=== PATIENT | female | born 1995 | race Caucasian/White ===

== ENCOUNTER 2017-07-03 19:41 | Emergency (ER) | payer OTHER, SELFPAY ==
--- NOTE | 2017-07-03 20:11 | XR_ITS ---
XR knee LT 2V HISTORY: Knee pain ITS.REASON: PAIN ORDERING PHYSICIAN: La Watkins PATIENT AGE: 21 years COMPARISON: None FINDINGS: There is a vague rounded lucency within the superior lateral pole of the patella which may be due to dorsal defect. This measures 13 mm. No fracture or dislocation evident. There is a sclerotic lesion involving the proximal metaphyseal region of the tibia centrally and posteriorly and may be due to a bone island. No significant degenerative change. IMPRESSION: 1. Dorsal defect of the patella versus osteochondral defect 2. Sclerotic lesion proximal tibia consistent with bone island. 3. Otherwise negative
[2017-07-03 20:12] VITALS: BP 130/78; PULSE 100; RESP 20; TEMP 36.8; O2SAT 99; BMI 32.0
--- NOTE | 2017-07-03 20:33 | HMH.EDUTC ---
[facility] – [place] Disposition Clinical Impression: Knee pain Qualifiers: Chronicity: chronic Laterality: left Qualified Code(s): M25.562 - Pain in left knee Disposition: Home, Self-Care Condition on Discharge: Good Additional Instructions: *RICE, Rest the extremity, Ice 15-20 minutes 3-4 times daily, Compress- wear the ryan wrap as discussed as much as possible to help reduce swelling and pain, Elevate the extremity when at rest *Ryan wrap is for support and help control swelling, use it except in the shower. Be sure that is not to tight but not to loose either *Elevate when resting *Ibuprofen very 6-8 hours as needed for pain an inflammation. If need something more can take Tylenol in between doses of Ibuprofen to help Immediately follow up for new or worsening of symptoms, or no noticeable improvement over the next 3-5 days Prescriptions: Ibuprofen [Ibuprofen 800mg Tab] 800 mg PO Q6HP PRN #20 tab PRN Reason: Moderate Pain Referrals: Tonio Harris MD [Staff Physician] - Earl Schulz MD [Staff Physician] - Time of Disposition: 21:22 Medical Decision Making - Medical Records Medical records reviewed: Yes: I reviewed the patient's medical records. Vital Signs: 07/03/17 20:12 Temperature 98.2 F Temperature Source Temporal Artery Scan Pulse Rate [Right] 100 H Respiratory Rate 20 Blood Pressure [Right Arm] 130/78 Blood Pressure Mean [Right Arm] 95 Blood Pressure Source [Right Arm] Automatic Cuff Blood Pressure Position [Right Arm] Sitting 02 Sat by Pulse Oximetry 99 Oxygen Delivery Method Room Air - Lab Data Lab Results 07/03/17 20:11: Influenza Type A Ag Negative, Influenza Type B Ag Negative, Strep Scn Rapid Clinic Negative Orders (Tests/Meds): ORDERS Category Date Time Status Knee XR left 2 views [XR knee LT 2V] Stat Exams 07/03/17 20:11 Taken Strep Screen Confirmation Stat Micro 07/03/17 20:11 Received - Radiology Data #1 Image(s): Knee Image Reviewed: Yes I have reviewed radiologist's interpretation Vrad reading- 1 Incidental dorsal defect of the patella versus osteochondral defect. 2. Sclerotic lesion within the proximal tibia consistant with bone - Alex Inquiry Pt receiving controlled substance: No Laex was queried for this patient: No [facility] [place] HPI - General Stated complaint: Left knee Pain Mode of Arrival: Ambulatory Source of Information: Patient Limitations: No Limitations Description of Symptoms (Recalled from Triage Doc. by RN): LEFT KNEE PAIN X1 WK, DENIES INJURY, SORE THROAT TODAY HEENT Symptoms (Recalled from RN notes): No Resp Symptoms (Recalled from RN notes): No Skin Symptoms (Recalled from RN notes): No MS Symptoms (Recalled from RN notes): Yes Functional Status (Recalled from RN notes): N - History of Present Illness Provider Complaint: Patient state that she has been having pain in her left knee area for over a year State that she was doing good with it when about a week ago she began to have pain in the left knee again State that when she tries to stand on her knee or bend it the pain is worse. State that she also wants us to check her for the flu because she has been having sore throat - Related Data Previous Rx's Medication Instructions Recorded Ibuprofen [Ibuprofen 800mg Tab] 800 mg PO Q6HP PRN #20 tab 07/03/17 Allergies Allergy/AdvReac Type Severity Reaction Status Date / Time No Known Allergies Allergy Verified 07/03/17 20:16 - Worker's Comp Is this a Worker's Comp case?: No [facility] History I have reviewed the patient's past medical history: Yes - *Social History Smoking Status: Current every day smoker Tobacco Type: cigarettes Alcohol Intake: never - Psychiatric History Expresses thoughts of harming self/others: None Suicide Plan Description: No Plan ROS Obtained: Yes All systems reviewed & no additional complaints Physical Exam - General General appearance: alert, in no apparent distress - Expanded ENT Exam Comment
[2017-07-03 20:47] LABS: UTC Influenza A Antigen Negative (Negative); UTC Influenza B Antigen Negative (Negative); UTC Strep Screen (Rapid) Negative (Negative)
[2017-07-03 21:20] VITALS: BP 130/78; PULSE 88; RESP 18; TEMP 36.8
== END 2017-07-03 21:28 | disposition home or self-care (01) ==
PROVIDERS: Emergency Provider Nurse Practitioner
DX: M25.562 Pain in left knee (principal)
CPT/HCPCS: 73560; 87804; 87880; 99202

== ENCOUNTER → 2017-07-16 15:16 | Outpatient (CLI) | payer OTHER, SELFPAY ==
--- NOTE | 2017-07-16 15:18 | MR_ITS ---
MR knee LT wo con MRI left knee without contrast Ordering Physician: Tonio Harris MD Patient Age: 21 years: Female HISTORY: Left knee pain on and off for several years. Left knee popping pain medial and lateral. Worse last month. No known injury. TECHNIQUE: Multiplanar multisequence imaging 1.5 the MR. COMPARISON :Plain films left knee 07/03/2017 FINDINGS Suggestion of mild chondral irregularities at lateral facet of patella. Irregularity and variations of chondral signal seen here as noted on sagittal image 16, but best seen on axial image 8, 7 at lateral facet of patella. There is also some concavity at the posterior osseous patella in this region which may reflect osteochondral defect feature. This corresponds with a vague lucency at the superior patella on plain film.. Subtle increased joint fluid which is particularly evident in this region at lateral patellofemoral joint. Just inferior to this area there appears to be some slight increase chondral signal and mild chondral thickening which may reflect some minor chondral edema?. The medial facet patella appears satisfactory. The patella appears normal position on axial images. Borderline patella divine on the sagittal slices The ACL and PCL appear intact. The medial and lateral collateral ligaments are intact The patellar tendon and quadriceps tendon intact. The lateral meniscus and medial meniscus intact. Although note relatively small volume of the body of medial meniscus on coronal images but no definitive tear evident here.. Cartilage at the medial and lateral compartment well-maintained. No osteochondral defects at medial or lateral compartment. . I would note a what would appear to be most likely a sclerotic benign bone island healing ovoid focal low-density focus at the posterior proximal tibia,. This measures up to 10 mm on MR in its its maximum dimension. This matches the sclerotic focus seen on plain film from 07/03/2017. On MR there is some subtle increased bone signal about this area is nonspecific. Unimpressive. Most likely reflect some fatty marrow variation rather than bone edema. No cortical thickening to suggest such things as a osteoid osteoma.. Clinical correlation required . Osseous elements appear overall satisfactory otherwise ===IMPRESSION===== 1. Chondral irregularities at the lateral facet of patella.. In addition to the chondral irregularities here the osseous lateral facet of patella has focal concave posterior contours- question healing prior osteochondral irregularity (, axial image 8),. This correspond with the area of decreased density of superior patella noted on on recent plain film 2. Slight increased joint fluid at lateral patellofemoral joint associated. 3. A 10 mm ovoid sclerotic focus at the posterior tibia, just inferior to the PCL insertion.- Most likely benign sclerotic bone island as was seen on recent plain film as well.
== END ==
PROVIDERS: Family Provider Orthopaedic Surgery; PCP Orthopaedic Surgery; Visit Provider Orthopaedic Surgery
DX: M25.562 Pain in left knee (principal); G89.29 Other chronic pain; M89.9 Disorder of bone, unspecified; M94.9 Disorder of cartilage, unspecified
CPT/HCPCS: 73721

== ENCOUNTER 2017-08-31 14:35 | Emergency (ER) | payer OTHER, SELFPAY ==
[2017-08-31 15:32] VITALS: BP 113/70; PULSE 78; RESP 20; TEMP 36.8; O2SAT 100; BMI 30.1
--- NOTE | 2017-08-31 16:16 | HMH.EDUTC ---
[facility] [place] Clinical Impression: Nausea Disposition: Home, Self-Care Condition on Discharge: Good Instructions: DI for Nausea -- Adult Additional Instructions: Take medication as prescribed Follow up with family doctor Return if needed Over the counter Motrin or Tylenol as needed for fever or pain Prescriptions: Ondansetron [Zofran 4mg ODT] 4 mg PO Q8H #20 tab.rapdis Referrals: Tonio Harris MD [Primary Care Provider] - Forms: Work/School Release Time of Disposition: 16:18 Medical Decision Making - Medical Records Medical records reviewed: Yes: I reviewed the patient's medical records. - Alex Inquiry Pt receiving controlled substance: No Alex was queried for this patient: No Vital Signs: 08/31/17 15:32 Temperature 98.2 F Temperature Source Oral Pulse Rate [Right Brachial] 78 Respiratory Rate 20 Blood Pressure [Right Arm] 113/70 Blood Pressure Mean [Right Arm] 84 Blood Pressure Source [Right Arm] Automatic Cuff Blood Pressure Position [Right Arm] Sitting 02 Sat by Pulse Oximetry 100 Oxygen Delivery Method Room Air - Lab Data Lab results reviewed: Yes: I reviewed the patient's lab results. Orders (Tests/Meds): ED MEDICATIONS Generic Name Dose Route Start Last Admin Trade Name Freq PRN Reason Stop Dose Admin Ondansetron HCl 4 mg 08/31/17 16:18 Zofran 4mg Odt SL 08/31/17 16:19 ONCE ONE [facility] [place] HPI - General Stated complaint: poss allergic reaction to cortisone shot Time Seen by Provider: 08/31/17 15:50 Mode of Arrival: Family Vehicle Source of Information: Patient Limitations: No Limitations Description of Symptoms (Recalled from Triage Doc. by RN): c/o feeling sick and tired since receiving cortisone shot from in [place] on sunday HEENT Symptoms (Recalled from RN notes): No Resp Symptoms (Recalled from RN notes): No Skin Symptoms (Recalled from RN notes): No MS Symptoms (Recalled from RN notes): No Functional Status (Recalled from RN notes): n/a - History of Present Illness Provider Complaint: Patient presents with nausea and upset stomach State that she was worried that she may be having an allergic reaction to the cortisone shot she got in [place] at her doctor on Sunday State that ever since the shot she has had upset stomach Denies rash, denies swelling state that at times she has nausea that comes and goes - Related Data Previous Rx's Medication Instructions Recorded Ondansetron [Zofran 4mg ODT] 4 mg PO Q8H #20 tab.albertadis 08/31/17 Allergies Allergy/AdvReac Type Severity Reaction Status Date / Time No Known Allergies Allergy Verified 08/02/17 14:07 - Worker's Comp Is this a Worker's Comp case?: No [facility] History I have reviewed the patient's past medical history: Yes Other Surgeries: Yes: No Previous Surgery - Social History Smoking Status: Current every day smoker Tobacco Type: cigarettes Alcohol Intake: never Alcohol Intake Frequency:: other Substance Use Type: denies use - Psychiatric History Expresses thoughts of harming self/others: None Suicide Plan Description: No Plan Family Hx:: Diabetes ROS Obtained: Yes All systems reviewed & no additional complaints - Constitutional Constitutional: Denies chills, Denies fever(s) - Gastrointestinal Gastrointestingal: Reports: nausea - Allergic/Immunologic Allergic/Immunologic: Denies hives Physical Exam - General General appearance: alert, in no apparent distress - ENT ENT exam: Present: normal exam, normal oropharynx, mucous membranes moist, TM's normal bilaterally, normal external ear exam - Respiratory Respiratory exam: Present: normal lung sounds bilaterally. Absent: respiratory distress - Cardiovascular Cardiovascular exam: Present: regular rate, normal rhythm. Absent: JVD - Abdominal Exam Abdominal exam: Present: soft, normal bowel sounds. Absent: distention, tenderness, guarding - Extremities Exam Extremities exam: Present:
[2017-08-31 16:28] VITALS: BP 113/70; PULSE 78; RESP 20; TEMP 36.8; O2SAT 100
== END 2017-08-31 16:29 | disposition home or self-care (01) ==
PROVIDERS: Emergency Provider Nurse Practitioner; Family Provider Orthopaedic Surgery; PCP Orthopaedic Surgery
DX: R11.0 Nausea (principal); F17.210 Nicotine dependence, cigarettes, uncomplicated
CPT/HCPCS: 99201

== ENCOUNTER 2019-10-13 20:32 | Emergency (ER) | payer SELFPAY ==
[2019-10-13 20:34] VITALS: BP 108/84; PULSE 81; RESP 15; TEMP 36.8; O2SAT 100
[2019-10-13 20:49] VITALS: BMI 32.9
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
[2019-10-13 21:19] LABS: Chloride 105 mmol/L (98-107); Sodium 137 mmol/L (136-145)
[2019-10-13 21:20] LABS: Potassium 4.4 mmoL/L (3.5-5.1)
[2019-10-13 21:21] LABS: Basophils # 0.1 K/mm3 (0-0.2); Basophils % 0.7 % (0.1-2.0); Eosinophils # 0.1 K/mm3 (0.0-0.4); Eosinophils % 1.2 % (0.1-12.0); Hematocrit 40.2 % (37.0-47.0); Hemoglobin 12.7 g/dL (12.2-16.2); Lymphocytes # 1.8 K/mm3 (0.7-4.5); Lymphocytes % 17.2 % (10-50); Mean Corpuscular HGB Conc 31.5 g/dL (31.8-35.4); Mean Corpuscular Hemoglobin 27.6 pg (27.0-31.2); Mean Corpuscular Volume 87.5 fl (81-99); Mean Platelet Volume 9.1 fl (7.4-10.4); Monocytes # 0.5 K/mm3 (0.1-1.0); Monocytes % 5.2 % (1.7-9.3); Neutrophils # 7.9 K/mm3 (1.8-7.8); Neutrophils % 75.8 % (37.0-80.0); Platelet Count 325 K/mm3 (142-424); Red Blood Count 4.59 M/mm3 (4.20-5.40); Red Cell Distribution Width 12.7 % (11.5-17.5); White Blood Count 10.4 K/mm3 (4.8-10.8)
[2019-10-13 21:22] LABS: Alanine Aminotransferase 12 U/L (12-78); Alkaline Phosphatase 85 U/L (38-126); Anion Gap 11.4 mEq/L (5-15); Aspartate Amino Transferase 30 U/L (14-36); Blood Urea Nitrogen 11 mg/dl (7-17); Carbon Dioxide 25 mmol/L (22.0-30.0); Creatinine Clearance Estimated 125 mL/min (50-200); Estimated Glomerular Filt Rate 78 ml/min (>60); GFR (African American) 94 ML/MIN (>60); Glucose 87 mg/dl (74-100); HCG Qualitative, Serum Negative (Negative)
[2019-10-13 21:23] LABS: Albumin Level 4.4 g/dl (3.5-5.0); Albumin/Globulin Ratio 1.3 (1.1-1.8); Globulin 3.3 g/dL (1.3-3.2); Total Protein,Serum 7.7 g/dl (6.3-8.2)
[2019-10-13 21:29] LABS: Bilirubin,Total < 0.1 mg/dl (0.2-1.3)
[2019-10-13 21:42] VITALS: BP 119/68; PULSE 78; TEMP 37.2; O2SAT 100
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
[2019-10-14 00:21] VITALS: BP 112/62; PULSE 76; RESP 16; TEMP 37.2; O2SAT 100
== END 2019-10-14 00:28 | disposition home or self-care (01) ==
PROVIDERS: Emergency Provider Emergency Medicine
DX: S39.91XA Unspecified injury of abdomen, initial encounter (principal); S00.03XA Contusion of scalp, initial encounter; S16.1XXA Strain of muscle, fascia and tendon at neck level, initial encounter; V89.2XXA Person injured in unspecified motor-vehicle accident, traffic, initial encounter; F33.1 Major depressive disorder, recurrent, moderate; F17.210 Nicotine dependence, cigarettes, uncomplicated
CPT/HCPCS: 70450; 71045; 72125; 72170; 73564; 74177; 80053; 84703; 85025; 96365; 99282; Q9967

== ENCOUNTER 2020-01-13 14:36 | Emergency (ER) | payer MEDICAID, SELFPAY ==
[2020-01-13 15:14] VITALS: BP 102/64; PULSE 69; RESP 14; TEMP 36.8; O2SAT 100; BMI 31.1
--- NOTE | 2020-01-13 15:21 | HMH.EDUTC ---
[facility] [place] Disposition Clinical Impression: Migraine Qualifiers: Migraine type: unspecified Status migrainosus presence: without status migrainosus Intractability: not intractable Qualified Code(s): G43.909 - Migraine, unspecified, not intractable, without status migrainosus Disposition: Home, Self-Care Condition on Discharge: Good Instructions: Migraine -- Adult, DI for Migraine Additional Instructions: Go home lay down and sleep off remainder of migraine headache Follow up with Family doctor for further treatment and evaluation Return if needed Straight to ER if any life threatening symptoms Referrals: PCP,No [Primary Care Provider] - As needed Forms: Work/School Release Time of Disposition: 16:03 Medical Decision Making - Alex Inquiry Pt receiving controlled substance: No Alex was queried for this patient: No Vital Signs: 01/13/20 15:14 Temperature 98.2 F Temperature Source Oral Pulse Rate [Right Brachial] 69 Respiratory Rate 14 Blood Pressure [Right Arm] 102/64 L Blood Pressure Mean [Right Arm] 76 Blood Pressure Source [Right Arm] Automatic Cuff Blood Pressure Position [Right Arm] Sitting 02 Sat by Pulse Oximetry 100 Oxygen Delivery Method Room Air - Lab Data Lab results reviewed: Yes: I reviewed the patient's lab results. Orders (Tests/Meds): ED MEDICATIONS Discontinued Medications Generic Name Dose Route Start Last Admin Trade Name Wanq PRN Reason Stop Dose Admin Diphenhydramine HCl 25 mg 01/13/20 15:29 01/13/20 15:51 Benadryl 50mg/1ml Vial IM 01/13/20 15:30 25 mg ONCE ONE Administration Ketorolac Tromethamine 60 mg 01/13/20 15:29 01/13/20 15:52 Toradol 60mg/2ml Vial IM 01/13/20 15:30 60 mg ONCE ONE Administration Metoclopramide HCl 10 mg 01/13/20 15:29 01/13/20 15:51 Metoclopramide 10mg Tablet PO 01/13/20 15:30 10 mg ONCE ONE Administration - Reevaluation(s) Time: 16:02 Reevaluation #1: Patient states that headache is starting to ease off and she is feeling better [facility] [place] HPI - General Stated complaint: migraine for 3 days Time Seen by Provider: 01/13/20 15:21 Mode of Arrival: Ambulatory Source of Information: Patient Limitations: No Limitations Description of Symptoms (Recalled from Triage Doc. by RN): PATIENT C/O MIGRAINE X 3 DAYS HEENT Symptoms (Recalled from RN notes): Yes Resp Symptoms (Recalled from RN notes): No Skin Symptoms (Recalled from RN notes): No MS Symptoms (Recalled from RN notes): No Functional Status (Recalled from RN notes): WNL - History of Present Illness Provider Complaint: Patient states that she has had a migraine headache for about 3 days States that she was seen at [facility] about 2 days ago and was given injection of steriods and benadryl States that it helped for a little bit but then it came back States that today she is still having a headache so she came in to see if she could get something to help with the headache - Related Data Previous Rx's Medication Instructions Recorded Amoxicillin/Potassium Clav 1 tab PO Q12H 10 Days #20 tab 04/15/19 [Augmentin 875-125 Tablet] Ondansetron [Zofran 4mg ODT] 4 mg PO Q8HP PRN #20 tab.rapdis 04/15/19 predniSONE [Prednisone 20mg 20 mg PO BID 4 Days #8 tab 04/15/19 Tab] Allergies Allergy/AdvReac Type Severity Reaction Status Date / Time No Known Allergies Allergy Verified 10/13/19 22:42 - Worker's Comp Is this a Worker's Comp case?: No [facility] History - Hepatitis A Screen Drug use history?: No High risk sexual behaviors?: No History of sexually transmitted infection?: No Currently employed?: No Childcare worker?: No Do you have indoor plumbing?: Yes Do you have electricity?: Yes Attestation statement:: This patient has been screened for Hepatitis A risk factors. I have reviewed the patient's past medical history: Yes Medical History: Reports:: Depression Denies:: Diabetes Mellitus Type 1, Diabetes Mellitus Type 2, MR
[2020-01-13 16:06] VITALS: BP 102/64; PULSE 69; RESP 14; TEMP 36.8; O2SAT 100
== END 2020-01-13 16:10 | disposition home or self-care (01) ==
PROVIDERS: Emergency Provider Nurse Practitioner
DX: G43.909 Migraine, unspecified, not intractable, without status migrainosus (principal); F17.210 Nicotine dependence, cigarettes, uncomplicated
CPT/HCPCS: 96372; 99201

== ENCOUNTER 2020-03-26 19:00 | Emergency (ER) | payer MEDICAID, SELFPAY ==
[2020-03-26 19:15] VITALS: BP 117/74; PULSE 82; RESP 18; TEMP 36.6; O2SAT 100; BMI 31.8
--- NOTE | 2020-03-26 19:38 | HMH.EDUTC ---
[facility] [place] Clinical Impression: Left knee pain Qualifiers: Chronicity: chronic Qualified Code(s): M25.562 - Pain in left knee Disposition: Home, Self-Care Condition on Discharge: Good Additional Instructions: Rest the extremity,Wear the shruthi wrap for compression, Elevate the extremity as tolerated while you are resting. Take ibuprofen for pain. I sent in a prescription to your pharmacy. Follow up with Dr. Hraris. I put in a referral but you need to call his office and schedule an appointment. Follow up with your regular doctor. GO TO THE ER FOR ANY WORSENING SYMPTOMS Prescriptions: Ibuprofen [Ibuprofen 600mg Tablet] 600 mg PO Q6HP PRN #30 tab PRN Reason: Mild Pain Transmission Status: Received by [id number] Referrals: PCP,No [Primary Care Provider] - Forms: Work/School Release Time of Disposition: 19:49 Medical Decision Making - Medical Records Medical records reviewed: No: I reviewed the patient's medical records. - Alex Inquiry Pt receiving controlled substance: No Vital Signs: 03/26/20 19:15 03/26/20 20:00 Temperature 97.8 F 97.8 F Temperature Source Oral Oral Pulse Rate 82 Pulse Rate [Radial] 82 Respiratory Rate 18 18 Blood Pressure 117/74 Blood Pressure [Right Arm] 117/74 Blood Pressure Mean [Right Arm] 88 Blood Pressure Source Automatic Cuff Blood Pressure Source [Right Arm] Automatic Cuff Blood Pressure Position Sitting Blood Pressure Position [Right Arm] Sitting 02 Sat by Pulse Oximetry 100 Oxygen Delivery Method Room Air Room Air [facility] [place]PI - General Stated complaint: L leg pain Time Seen by Provider: 03/26/20 19:38 Mode of Arrival: Ambulatory Source of Information: Patient Limitations: No Limitations Description of Symptoms (Recalled from Triage Doc. by RN): left knee pain x 1 month HEENT Symptoms (Recalled from RN notes): No Resp Symptoms (Recalled from RN notes): No Skin Symptoms (Recalled from RN notes): No MS Symptoms (Recalled from RN notes): Yes Functional Status (Recalled from RN notes): wnl - History of Present Illness Provider Complaint: She c/o left knee pain on and off for the past 1 month. She states that she hurt her knee when she was playing high school basketball. She denies any recent injury or falls. - Related Data Previous Rx's Medication Instructions Recorded Amoxicillin/Potassium Clav 1 tab PO Q12H 10 Days #20 tab 04/15/19 [Augmentin 875-125 Tablet] Ondansetron [Zofran 4mg ODT] 4 mg PO Q8HP PRN #20 tab.rapdis 04/15/19 predniSONE [Prednisone 20mg 20 mg PO BID 4 Days #8 tab 04/15/19 Tab] Ibuprofen [Ibuprofen 600mg 600 mg PO Q6HP PRN #30 tab 03/26/20 Tablet] Allergies Allergy/AdvReac Type Severity Reaction Status Date / Time No Known Allergies Allergy Verified 10/13/19 22:42 - Worker's Comp Is this a Worker's Comp case?: No [facility] History - Hepatitis A Screen Drug use history?: No High risk sexual behaviors?: No History of sexually transmitted infection?: No Currently employed?: No Childcare worker?: No Do you have indoor plumbing?: Yes Do you have electricity?: Yes Attestation statement:: This patient has been screened for Hepatitis A risk factors. I have reviewed the patient's past medical history: Yes Medical History: Reports:: Depression Denies:: Diabetes Mellitus Type 1, Diabetes Mellitus Type 2, MRSA Other Surgeries: Yes: No Previous Surgery Amputation: No Fractures: No - Social History Smoking Status: Current every day smoker Tobacco Type: cigarettes # Packs/Day (cigarettes): 1 Alcohol Intake: never Alcohol Intake Frequency:: holidays/special occasions only Substance Use Type: denies use Occupational Status: other Housing: house Household Members: family - Psychiatric History Pschychiatric History:: Reports:: Depression Family Hx:: Diabetes ROS Obtained: Yes All systems reviewed & no additional complaints - Constitutional Constitutional: Reports sy
[2020-03-26 20:00] VITALS: BP 117/74; PULSE 82; RESP 18; TEMP 36.6; O2SAT 100
== END 2020-03-26 20:01 | disposition home or self-care (01) ==
PROVIDERS: Emergency Provider Nurse Practitioner Family
DX: M25.562 Pain in left knee (principal); F17.210 Nicotine dependence, cigarettes, uncomplicated
CPT/HCPCS: 99201

== ENCOUNTER 2020-10-01 09:24 | Emergency (ER) | payer MEDICAID, SELFPAY ==
[2020-10-01 10:00] VITALS: BP 128/74; PULSE 87; RESP 17; TEMP 37; O2SAT 99; BMI 34.7
--- NOTE | 2020-10-01 10:11 | HMH.EDUTC ---
[facility] [place] Clinical Impression: Gastroenteritis Disposition: Home, Self-Care Condition on Discharge: Good Instructions: DI for Viral Gastroenteritis -- Adult Additional Instructions: Clear liquids, bland diet. Return to work Sunday. Referrals: Provider,Referral, [Primary Care Provider] - Forms: Work/School Release Time of Disposition: 10:15 Medical Decision Making - Alex Inquiry Pt receiving controlled substance: No Vital Signs: 10/01/20 10:00 Temperature 98.6 F Temperature Source Oral Pulse Rate [Right Brachial] 87 Respiratory Rate 17 Blood Pressure [Right Arm] 128/74 Blood Pressure Mean [Right Arm] 92 Blood Pressure Source [Right Arm] Automatic Cuff Blood Pressure Position [Right Arm] Sitting 02 Sat by Pulse Oximetry 99 Oxygen Delivery Method Room Air [facility] [place]PI - General Stated complaint: vomiting,headache Time Seen by Provider: 10/01/20 10:11 Mode of Arrival: Ambulatory Source of Information: Patient Limitations: No Limitations Description of Symptoms (Recalled from Triage Doc. by RN): PATIENT C/O VOMITING, HEADACHE, DIARRHEA, AND STOMACH ACHES X 2 DAYS. STATES SHE FEELS BETTER TODAY, NEEDS A NOTE FOR WORK HEENT Symptoms (Recalled from RN notes): No Resp Symptoms (Recalled from RN notes): No Skin Symptoms (Recalled from RN notes): No MS Symptoms (Recalled from RN notes): No Functional Status (Recalled from RN notes): WNL - History of Present Illness Provider Complaint: Vomiting, diarrhea and headache X 2 days. No fever. Feeling better today but just woke up and hasn't eaten or drank anything yet. Very fatigued. Onset (ago): day(s) (2) Location: abdomen Relieving factors: none Exacerbating factors: none Associated symptoms: denies other symptoms Treatments prior to arrival: none - Related Data Home Medications Medication Instructions Recorded Confirmed testosterone cypionate 200 mg/mL 200 mg IM WEEKLY ml 07/16/20 10/01/20 intramuscular oil Allergies Allergy/AdvReac Type Severity Reaction Status Date / Time No Known Allergies Allergy Verified 07/16/20 13:32 - Worker's Comp Is this a Worker's Comp case?: No [facility] History - Hepatitis A Screen Drug use history?: No High risk sexual behaviors?: No History of sexually transmitted infection?: No Currently employed?: No Childcare worker?: No Do you have indoor plumbing?: Yes Do you have electricity?: Yes Attestation statement:: This patient has been screened for Hepatitis A risk factors. I have reviewed the patient's past medical history: Yes Medical History: Reports:: Depression Denies:: Diabetes Mellitus Type 1, Diabetes Mellitus Type 2, MRSA Other Surgeries: Yes: No Previous Surgery Amputation: No Fractures: No - Social History Smoking Status: Current every day smoker Tobacco Type: cigarettes # Packs/Day (cigarettes): 1 Alcohol Intake: never Alcohol Intake Frequency:: holidays/special occasions only Substance Use Type: denies use Occupational Status: other Housing: house Household Members: family - Psychiatric History Pschychiatric History:: Reports:: Depression Family Hx:: Diabetes ROS Obtained: Yes All systems reviewed & no additional complaints - Constitutional Constitutional: Reports headache(s) - Gastrointestinal Gastrointestingal: Reports: loose stools, vomiting Physical Exam - General General appearance: alert, in no apparent distress - Head Head exam: normocephalic - Eye Eye exam: Present: PERRL - ENT ENT exam: Present: normal oropharynx - Chest Chest inspection: Present: symmetric chest wall rise - Respiratory Respiratory exam: Present: normal lung sounds bilaterally - Cardiovascular Cardiovascular exam: Present: regular rate, normal rhythm - Abdominal Exam Abdominal exam: Present: soft. Absent: tenderness - Neurological Exam Neurological exam: Present: alert, oriented X3 - Psychiatric Psychiatric exam: Present: normal affect, normal mood
[2020-10-01 10:16] VITALS: BP 128/74; PULSE 87; RESP 17; TEMP 37; O2SAT 99
== END 2020-10-01 10:21 | disposition home or self-care (01) ==
PROVIDERS: Emergency Provider Physician Assistant
DX: K52.9 Noninfective gastroenteritis and colitis, unspecified (principal)
CPT/HCPCS: 99202; G0463

== ENCOUNTER 2020-10-15 14:40 | Emergency (ER) | payer MEDICAID, SELFPAY ==
[2020-10-15 14:45] VITALS: BP 111/69; PULSE 78; RESP 20; TEMP 36.6; O2SAT 98; BMI 34.7
--- NOTE | 2020-10-15 15:03 | HMH.EDUTC ---
[facility] [place]ression: Bilateral otitis media Qualifiers: Otitis media type: suppurative Chronicity: acute Recurrence: non-recurrent Spontaneous tympanic membrane rupture: without spontaneous rupture Qualified Code(s): H66.003 - Acute suppurative otitis media without spontaneous rupture of ear drum, bilateral Sinusitis Qualifiers: Sinusitis location: maxillary Chronicity: acute Recurrence: non-recurrent Qualified Code(s): J01.00 - Acute maxillary sinusitis, unspecified Disposition: Home, Self-Care Condition on Discharge: Good Instructions: DI for Sinusitis Prescriptions: Amoxicillin [Amoxicillin 875MG Tab] 875 mg PO Q12H #20 tab [id number] predniSONE [Prednisone 20mg Tab] 20 mg PO BID 5 Days #10 tab Transmission Status: Pending to [facility] Pseudoephedrine HCl [Sudafed 12 Hour 120mg Tab] 1 tab PO BID 10 Days #20 tab [facility]: [facility] Referrals: Provider,Referral, [Primary Care Provider] - Forms: Work/School Release Time of Disposition: 15:07 Medical Decision Making - Alex Inquiry Pt receiving controlled substance: No Vital Signs: 10/15/20 14:45 Temperature 97.8 F Temperature Source Oral Pulse Rate [Left Brachial] 78 Respiratory Rate 20 Blood Pressure [Left Arm] 111/69 Blood Pressure Mean [Left Arm] 83 Blood Pressure Source [Left Arm] Automatic Cuff Blood Pressure Position [Left Arm] Sitting 02 Sat by Pulse Oximetry 98 Oxygen Delivery Method Room Air - Lab Data Lab results reviewed: Yes: I reviewed the patient's lab results. Orders (Tests/Meds): ORDERS Category Date Time Status Covid-19 Nasal PCR ([facility]) Routine Lab 10/15/20 14:42 [place]dered [facility] [place] - General Stated complaint: loss taste/smell Time Seen by Provider: 10/15/20 15:03 Mode of Arrival: Ambulatory Source of Information: Patient Limitations: No Limitations Description of Symptoms (Recalled from Triage Doc. by RN): PATIENT C/O LOSS OF TASTE/SMELL, COUGH, SCRATCHY THROAT, RUNNY NOSE, MIGRAINES, AND STOMACH ACHE X 2 DAYS HEENT Symptoms (Recalled from RN notes): Yes Resp Symptoms (Recalled from RN notes): Yes Skin Symptoms (Recalled from RN notes): No MS Symptoms (Recalled from RN notes): No Functional Status (Recalled from RN notes): WNL - History of Present Illness Provider Complaint: Bilateral ear pain, congestion, sore throat, cough X 3-4 days. Not sure about fever. Has had body aches and chills. Has had abdominal pain and diarrhea, no vomiting. No rash. No known exposure to COVID19. Can't smell or taste. Had rapid COVID19 test done yesterday - it was negative. Onset (ago): day(s) (4) Location: head Relieving factors: none Exacerbating factors: none Associated symptoms: denies other symptoms Treatments prior to arrival: none - Related Data Home Medications Medication Instructions Recorded Confirmed testosterone cypionate 200 mg/mL 200 mg IM WEEKLY ml 07/16/20 10/01/20 intramuscular oil Previous Rx's Medication Instructions Recorded Amoxicillin [Amoxicillin 875MG 875 mg PO Q12H #20 tab 10/15/20 Tab] Pseudoephedrine HCl [Sudafed 12 1 tab PO BID 10 Days #20 tab 10/15/20 Hour 120mg Tab] predniSONE [Prednisone 20mg 20 mg PO BID 5 Days #10 tab 10/15/20 Tab] Allergies Allergy/AdvReac Type Severity Reaction Status Date / Time No Known Allergies Allergy Verified 07/16/20 13:32 - Worker's Comp Is this a Worker's Comp case?: No [facility] History - Hepatitis A Screen Drug use history?: No High risk sexual behaviors?: No History of sexually transmitted infection?: No Currently employed?: No Childcare worker?: No Do you have indoor plumbing?: Yes Do you have electricity?: Yes Attestation statement:: This patient has been screened for Hepatitis A risk factors. I have reviewed the patient's past medical history: Yes Medical History: Reports:: Depression De
[2020-10-15 15:12] VITALS: BP 111/69; PULSE 78; RESP 20; TEMP 36.6; O2SAT 98
[2020-10-15 19:12] LABS: UTC Influenza A Antigen Negative (Negative); UTC Strep Screen (Rapid) Negative (Negative)
[2020-10-15 19:13] LABS: UTC Influenza B Antigen Negative (Negative)
== END 2020-10-15 15:16 | disposition home or self-care (01) ==
PROVIDERS: Emergency Provider Physician Assistant
DX: Z20.822 Contact with and (suspected) exposure to COVID-19 (principal); H66.003 Acute suppurative otitis media without spontaneous rupture of ear drum, bilateral; J01.00 Acute maxillary sinusitis, unspecified; F17.210 Nicotine dependence, cigarettes, uncomplicated
CPT/HCPCS: 87804; 87880; 99202; G0463; U0003

== ENCOUNTER → 2021-01-27 09:07 | Outpatient (CLI) | payer MEDICAID, SELFPAY ==
[2021-01-27 09:52] LABS: Basophils # 0.1 K/mm3 (0-0.2); Basophils % 0.9 % (0.1-2.0); Eosinophils # 0.1 K/mm3 (0.0-0.4); Eosinophils % 1.4 % (0.1-12.0); Hematocrit 48.2 % (37.0-47.0); Hemoglobin 15.4 g/dL (12.2-16.2); Lymphocytes # 1.9 K/mm3 (0.7-4.5); Lymphocytes % 28.4 % (10-50); Mean Corpuscular HGB Conc 31.9 g/dL (31.8-35.4); Mean Corpuscular Volume 90.8 fl (81-99); Mean Platelet Volume 9.3 fl (7.4-10.4); Monocytes # 0.4 K/mm3 (0.1-1.0); Monocytes % 6.6 % (1.7-9.3); Neutrophils # 4.1 K/mm3 (1.8-7.8); Neutrophils % 62.7 % (37.0-80.0); Platelet Count 276 K/mm3 (142-424); Red Blood Count 5.31 M/mm3 (4.20-5.40); Red Cell Distribution Width 12.9 % (11.5-17.5); White Blood Count 6.6 K/mm3 (4.8-10.8)
[2021-01-27 10:46] LABS: Alanine Aminotransferase 11 U/L (12-78); Albumin/Globulin Ratio 1.3 (1.1-1.8); Alkaline Phosphatase 76 U/L (38-126); Anion Gap 13.4 mEq/L (5-15); Aspartate Amino Transferase 19 U/L (14-36); Bilirubin,Total 0.6 mg/dl (0.2-1.3); Blood Urea Nitrogen 12 mg/dl (7-17); Calcium 9.3 mg/dl (8.4-10.2); Carbon Dioxide 25 mmol/L (22.0-30.0); Chloride 106 mmol/L (98-107); Chol/HDL Ratio 3.5 (1-3.5); Cholesterol 173 mg/dl (140-200); Estimated Glomerular Filt Rate 77 ml/min (>60); GFR (African American) 93 ML/MIN (>60); Glucose 89 mg/dl (74-100); HDL Cholesterol 50 mg/dl (40-60); Potassium 4.4 mmoL/L (3.5-5.1); Sodium 140 mmol/L (136-145); Triglycerides 83 mg/dl (30-150); VLDL Cholesterol 17 mg/dL (0-40)
[2021-01-27 10:56] LABS: Direct LDL Cholesterol 103.86 mg/dL (100-129)
[2021-01-27 10:58] LABS: Hemoglobin A1C 5.3 % (4.0-6.0)
[2021-01-27 11:19] LABS: Prostate Specific Ag Screen < 0.1 ng/ml (0.0-0.0)
== END ==
PROVIDERS: Nurse Practitioner Family; Visit Provider Emergency Medicine
DX: G43.909 Migraine, unspecified, not intractable, without status migrainosus (principal)
CPT/HCPCS: 36415; 80053; 80061; 83036; 85025; G0103

== ENCOUNTER 2021-02-02 09:15 | Emergency (ER) | payer MEDICAID, SELFPAY ==
--- NOTE | 2021-02-02 10:10 | XR_ITS ---
PROCEDURE: XR SHOULDER RT MIN 2V CLINICAL INDICATION: PAIN COMPARISON: No exams were available for comparison FINDINGS: No fracture or dislocation. No lytic or blastic change. There is normal mineralization. The joint spaces are well-preserved. No significant degenerative/arthritic changes. No erosive changes evident. Other findings:None. IMPRESSION: Negative right shoulder. Dictated by: Jarad Posada MD 02/02/2021 11:05 Jarad Posada MD in [place] 02/02/2021 11:05
[2021-02-02 10:13] VITALS: BP 121/81; PULSE 79; RESP 18; TEMP 36.8; O2SAT 100; BMI 35.4
--- NOTE | 2021-02-02 10:20 | HMH.EDUTC ---
[facility] [place] Clinical Impression: Shoulder pain Qualifiers: Chronicity: unspecified Laterality: right Qualified Code(s): M25.511 - Pain in right shoulder Disposition: Home, Self-Care Condition on Discharge: Good Instructions: How To Perform RICE (Rest, Ice, Compress, Elevate), DI for Shoulder Pain, DI for Muscle Spasm Additional Instructions: *Etodolac francisco 8 hours with meal as needed for pain/inflammation *Not additional anti-inflammatory like Ibuprofen motrin, aleve, advil with the above amount of Etodolac. You can still take Tylenol every 4 hours as needed if you need something else for pain *Ice 20 minutes every 2 hours for the first 48 hours after the initial injury followed by moist heat every 20 minutes 3-4 times a day to affected area *Muscle relaxer every 8 hours as needed for muscle spasms but remember, it WILL cause drowsiness You cannot take it and drive, operate machinery or care for small children. *Keep this area active, no movement leads to more stiffness, However take it easy and avoid heavy lifting pushing or pulling *Follow up with you family doctor if no improvement for further treatment Return if needed Follow up with Orthopedics as scheduled Straight to ER if any life threatening symptoms Prescriptions: Etodolac 200 mg PO Q8HP PRN #20 cap PRN Reason: Moderate Pain Transmission Status: Pending to [facility] Cyclobenzaprine HCl [Flexeril 10mg tablet] 10 mg PO Q8HP PRN #15 tab PRN Reason: Muscle Spasm Transmission Status: P[facility] to [facility] Referrals: Shilo King APRN [Primary Care Provider] - As needed Forms: Work/School Release Medical Decision Making - Alex Inquiry Pt receiving controlled substance: No Alex was queried for this patient: No Vital Signs: 02/02/21 10:13 Temperature 98.3 F Temperature Source Oral Pulse Rate [Right] 79 Respiratory Rate 18 Blood Pressure [Right Arm] 121/81 Blood Pressure Mean [Right Arm] 94 02 Sat by Pulse Oximetry 100 - Radiology Data #1 Image(s): Shoulder Image Reviewed: Yes I reviewed the patient's radiology image Preliminary Findings: No Fracture Seen [facility] [place]PI - General Stated complaint: rt arm/hand numbness, swelling Time Seen by Provider: 02/02/21 10:21 Mode of Arrival: Ambulatory Description of Symptoms (Recalled from Triage Doc. by RN): RIGHT HAND SWOLLEN, RIGHT SHOULDER KEEP GOING NUMB x3DAYS HEENT Symptoms (Recalled from RN notes): No Resp Symptoms (Recalled from RN notes): No Skin Symptoms (Recalled from RN notes): No MS Symptoms (Recalled from RN notes): Yes Functional Status (Recalled from RN notes): WNL - History of Present Illness Provider Complaint: Patient states that she has been having pain in her right hand for months and she has an appointment with Dr Harris next month for it States that for the last few days she has been having spasm like pain in her right shoulder area and it shoots into shoulder and upper arm and at times feels like electricity like feeling in her upper arm State that pain is worse with movement and she cannot lay on this arm due to causing pain States that she does alot of pulling and tugging at work and not sure if she may have hurt it somehow - Related Data Home Medications Medication Instructions Recorded Confirmed testosterone cypionate 200 mg/mL 200 mg IM WEEKLY ml 07/16/20 12/15/20 intramuscular oil Previous Rx's Medication Instructions Recorded Cyclobenzaprine HCl [Flexeril 10mg 10 mg PO Q8HP PRN #15 tab 02/02/21 tablet] Etodolac 200 mg PO Q8HP PRN #20 cap 02/02/21 Allergies Allergy/AdvReac Type Severity Reaction Status Date / Time No Known Allergies Allergy Verified 02/02/21 10:16 - Worker's Comp Is this a Worker's Comp case?: No [facility] History - Hepatitis A Screen Drug use history?: No High risk sexual behaviors?: No History of sexually transmitted infection?: No Currently employed?: No Childcare worker?: No Do you
--- NOTE | 2021-02-02 10:30 | PC.NURSE ---
PT TO XRAY AT THIS TIME.
[2021-02-02 11:28] LABS: UTC Pregnancy Test, Urine Negative (Negative)
[2021-02-02 12:01] VITALS: BP 121/81; PULSE 79; RESP 18; TEMP 36.8; O2SAT 100
== END 2021-02-02 12:04 | disposition home or self-care (01) ==
PROVIDERS: Emergency Provider Nurse Practitioner; PCP Nurse Practitioner Family
DX: M25.511 Pain in right shoulder (principal); R20.2 Paresthesia of skin; Z87.891 Personal history of nicotine dependence
CPT/HCPCS: 73030; 81025; 99202; G0463

== ENCOUNTER → 2021-03-01 08:39 | Outpatient (CLI) | payer MEDICAID, SELFPAY ==
--- NOTE | 2021-03-01 08:44 | XR_ITS ---
PROCEDURE: XR HAND RT MIN 3V CLINICAL INDICATION: right hand pain COMPARISON: No exams were available for comparison FINDINGS: No fracture or dislocation. No lytic or blastic change. There is normal mineralization. The joint spaces are well-preserved. No significant degenerative/arthritic changes. No erosive changes evident. Other findings:None. IMPRESSION: No acute findings. Dictated by: Jarad Posada MD 03/01/2021 17:56 Jarad Posada MD in [place] 03/01/2021 17:56
== END ==
PROVIDERS: Visit Provider Orthopaedic Surgery
DX: M79.641 Pain in right hand (principal)
CPT/HCPCS: 73130

== ENCOUNTER 2021-03-01 09:50 | Outpatient (RCR) | payer MEDICAID, SELFPAY | END 2021-03-01 10:54 | disposition home or self-care (01) | LOC: OT 09:50 | PROVIDERS: Visit Provider Orthopaedic Surgery | DX: G56.01 Carpal tunnel syndrome, right upper limb (principal) | CPT/HCPCS: 97763 ==

== ENCOUNTER → 2021-03-28 07:06 | Outpatient (CLI) | payer MEDICAID, SELFPAY ==
--- NOTE | 2021-03-28 07:06 | CT_ITS ---
PROCEDURE: CT HEAD/BRAIN WO CON CLINICAL INDICATION: headches COMPARISON: CT CT HEAD/BRAIN WO CON from 10/13/2019 TECHNIQUE: Axial images obtained. All CT scans at the facility use one or more dose reduction, viz: automated exposure control, ma/kV adjustment per patient size (including targeted exams where dose is matched to indication, i.e. head), or iterative reconstruction technique. FINDINGS: No midline shift, mass effect, intracranial hemorrhage, hydrocephalus, or extra-axial fluid collection is evident. The calvarium has an unremarkable appearance. No mastoid effusion. Mild to moderate mucosal thickening is present within the sphenoid sinus. Mild mucosal thickening maxillary sinuses. IMPRESSION: No acute intracranial findings. Paranasal sinus disease Dictated by: Jarad Posada MD 03/28/2021 07:49 Jarad Posada MD in [place] 03/28/2021 07:49
== END ==
PROVIDERS: PCP Nurse Practitioner Family; Visit Provider Nurse Practitioner Family
DX: G43.909 Migraine, unspecified, not intractable, without status migrainosus (principal); R55 Syncope and collapse
CPT/HCPCS: 70450

== ENCOUNTER → 2021-06-01 21:08 | Outpatient (CLI) | payer MEDICAID, SELFPAY | PROVIDERS: Visit Provider Nurse Practitioner Family | DX: Z20.822 Contact with and (suspected) exposure to COVID-19 (principal); J02.9 Acute pharyngitis, unspecified | CPT/HCPCS: C9803; U0003; U0005 ==

== ENCOUNTER 2021-06-26 17:43 | Emergency (ER) | payer MEDICAID, SELFPAY ==
[2021-06-26 18:43] VITALS: BP 137/77; PULSE 74; RESP 20; TEMP 36.7; O2SAT 99; BMI 34.7
--- NOTE | 2021-06-26 19:21 | HMH.EDUTC ---
[facility] [place] Clinical Impression: Viral syndrome Disposition: Home, Self-Care Condition on Discharge: Good Instructions: Preventing the Spread of Coronavirus Discharge Instructions, DI for COVID-19 (Suspected or Confirmed ), DI for Viral Syndrome Additional Instructions: Drink plenty of fluids. Take tylenol or ibuprofen for pain or fever. Take the medications as directed. Follow up with your regular doctor. GO TO THE ER FOR ANY WORSENING SYMPTOMS Quarantine until you know the results of your covid-19 test. Notify your school or workplace of your results and follow their instructions regarding return to work/school. Prescriptions: Brompheniramine/Pseudoephed/Dm [Bromfed Dm Cough Syrup] 5 ml PO Q6HP PRN #240 ml PRN Reason: Cough Transmission Status: Pending to [facility] Ondansetron [Zofran 4mg ODT] 4 mg PO Q8HP PRN #20 tab PRN Reason: Nausea Transmission Status: Pending to [facility] Referrals: Shilo King APRN [Primary Care Provider] - Forms: Work/School Release Time of Disposition: 19:47 Medical Decision Making - Medical Records Medical records reviewed: No: I reviewed the patient's medical records. - Alex Inquiry Pt receiving controlled substance: No Vital Signs: 06/26/21 18:43 06/26/21 19:30 Temperature 98.1 F 98.1 F Temperature Source Oral Pulse Rate 74 Pulse Rate [Left] 74 Respiratory Rate 20 20 Blood Pressure 137/77 Blood Pressure [Right Arm] 137/77 Blood Pressure Mean [Right Arm] 97 02 Sat by Pulse Oximetry 99 Orders (Tests/Meds): ORDERS Category Date Time Status Covid-19 Nasal PCR ([place]) Routine Lab 06/26/21 18:38 Received [facility] [place] - General Stated complaint: covid test/treated for symptoms Time Seen by Provider: 06/26/21 19:21 Mode of Arrival: Ambulatory Source of Information: Patient Limitations: No Limitations Description of Symptoms (Recalled from Triage Doc. by RN): pt c/o body aches, nasal drainage, cough and epistaxis (not at this time) HEENT Symptoms (Recalled from RN notes): Yes (nasal drainage) Resp Symptoms (Recalled from RN notes): Yes (cough) Skin Symptoms (Recalled from RN notes): No MS Symptoms (Recalled from RN notes): No Functional Status (Recalled from RN notes): wnl - History of Present Illness Provider Complaint: She states that for the past 2 days, she has had body aches, chills, diarrhea, n/v, scratchy sore throat and she has felt bad. She works in a day care. She may have been exposed to covid-19 by a family member also. - Related Data Home Medications Medication Instructions Recorded Confirmed testosterone cypionate 200 mg/mL 200 mg IM WEEKLY ml 07/16/20 06/01/21 intramuscular oil Previous Rx's Medication Instructions Recorded triamcinolone acetonide 0.5 % 1 applic TOPICAL TID #15 g 03/05/21 topical cream amoxicillin 500 mg capsule 500 mg PO Q12H 10 Days #20 cap 06/01/21 ondansetron 4 mg disintegrating 4 mg PO Q6H PRN 3 Days #12 tab 06/01/21 tablet Brompheniramine/Pseudoephed/Dm 5 ml PO Q6HP PRN #240 ml 06/26/21 [Bromfed Dm Cough Syrup] Ondansetron [Zofran 4mg ODT] 4 mg PO Q8HP PRN #20 tab 06/26/21 Allergies Allergy/AdvReac Type Severity Reaction Status Date / Time No Known Allergies Allergy Verified 06/01/21 12:11 - Worker's Comp Is this a Worker's Comp case?: No [place] History - Hepatitis A Screen Drug use history?: No High risk sexual behaviors?: No History of sexually transmitted infection?: No Currently employed?: No Childcare worker?: No Do you have indoor plumbing?: Yes Do you have electricity?: Yes Attestation statement:: This patient has been screened for Hepatitis A risk factors. I have reviewed the patient's past medical history: Yes Medical History: Reports:: Depression Denies:: Diabetes Mellitus Type 1, Diabetes Mellitus Type 2, MRSA Other Surgeries: Yes: No Previous Surgery Amputation: No Fractures: No - Socia
[2021-06-26 19:30] VITALS: BP 137/77; PULSE 74; RESP 20; TEMP 36.7
== END 2021-06-26 19:52 | disposition home or self-care (01) ==
PROVIDERS: Emergency Provider Nurse Practitioner Family; PCP Nurse Practitioner Family
DX: B34.9 Viral infection, unspecified (principal); Z20.822 Contact with and (suspected) exposure to COVID-19; Z87.891 Personal history of nicotine dependence
CPT/HCPCS: 99202; C9803; G0463; U0003; U0005

== ENCOUNTER → 2021-06-29 10:43 | Outpatient (CLI) | payer MEDICAID, SELFPAY ==
[2021-06-30 09:30] LABS: Covid-19 Nasal PCR Sendout Lex NOT DETECTED
== END ==
PROVIDERS: Visit Provider Nurse Practitioner
DX: Z20.822 Contact with and (suspected) exposure to COVID-19 (principal)
CPT/HCPCS: C9803; U0004; U0005

== ENCOUNTER 2021-08-06 07:57 | Emergency (ER) | payer MEDICAID, SELFPAY ==
[2021-08-06 07:58] VITALS: BP 135/78; PULSE 66; RESP 16; TEMP 36.6; O2SAT 98; BMI 38.2
[2021-08-06 08:05] VITALS: BMI 38.2
--- NOTE | 2021-08-06 08:06 | XR_ITS ---
PROCEDURE INFORMATION: Exam: XR Right Wrist Exam date and time: 08/06/2021 8:06 AM Age: 25 years old Clinical indication: Pain; Wrist; Right; Additional info: Pain/ no injury TECHNIQUE: Imaging protocol: XR Right wrist. Views: 1 or 2 views. COMPARISON: CR XR HAND RT MIN 3V 03/01/2021 8:45 AM FINDINGS: Bones/joints: There is no evidence of acute fracture.There is no evidence of malalignment or dislocation. Soft tissues: Normal. IMPRESSION: There is no evidence of acute fracture.There is no evidence of malalignment or dislocation.
--- NOTE | 2021-08-06 08:08 | HMH.EDGENADL ---
ED Disposition Clinical Impression: De Quervain's tenosynovitis, right Disposition: Home, Self-Care Condition on Discharge: Good Instructions: De Quervain Tenosynovitis, DI for Tendinitis Additional Instructions: Wear wrist brace. Ice 20 minutes 4 times a day. Ibuprofen 800 mg 2 times a day. Follow-up with Dr. Harris in his office, call for appointment. Prescriptions: Ibuprofen [Ibuprofen 800mg Tablet] 800 mg PO Q8HP PRN #21 tab PRN Reason: Moderate Pain Transmission Status: Received by [facility] Referrals: Shilo King APRN [Primary Care Provider] - Tonio Harris MD [Staff Physician] - - Critical Care Critical Care Time: No Attestation: On 08/06/21, the high probability of a clinically significant, sudden or life threatening deterioration of the following system(s) required my full and direct attention, intervention and personal management. The time I documented below is in addition to time spent performing reported procedures but includes the following listed in this critical care notation. Medical Decision Making - Medical Records Medical records reviewed: Yes: I reviewed the patient's medical records. MR Comment: Seen by Dr. Harris Feb 2021 for right hand pain, paresthesias. X-ray neg. EMG/NCV mild CTS. Patient says these symptoms are different. - Alex Inquiry Pt receiving controlled substance: No Vital Signs: 08/06/21 07:58 Temperature 97.8 F Temperature Source Oral Pulse Rate [Radial] 66 Respiratory Rate 16 Blood Pressure [Right Arm] 135/78 Blood Pressure Mean [Right Arm] 97 Blood Pressure Position [Right Arm] Sitting 02 Sat by Pulse Oximetry 98 Oxygen Delivery Method Room Air Orders (Tests/Meds): ED MEDICATIONS Discontinued Medications Generic Name Dose Route Start Last Admin Trade Name Freq PRN Reason Stop Dose Admin Ibuprofen 600 mg 08/06/21 08:07 08/06/21 08:10 Ibuprofen 600 Mg Tablet PO 08/06/21 08:08 600 mg ONCE ONE Administration - Radiology Data #1 Image(s): Wrist Image Reviewed: Yes I reviewed the patient's radiology image, Yes I have reviewed radiologist's interpretation Preliminary Findings: Normal/NAD PROCEDURE INFORMATION: Exam: XR Right Wrist Exam date and time: 08/06/2021 8:06 AM Age: 25 years old Clinical indication: Pain; Wrist; Right; Additional info: Pain/ no injury TECHNIQUE: Imaging protocol: XR Right wrist. Views: 1 or 2 views. COMPARISON: CR XR HAND RT MIN 3V 03/01/2021 8:45 AM FINDINGS: Bones/joints: There is no evidence of acute fracture.There is no evidence of malalignment or dislocation. Soft tissues: Normal. IMPRESSION: There is no evidence of acute fracture.There is no evidence of malalignment or dislocation. General Adult HPI - General Stated complaint: right wrist pain, no accident Time Seen by Provider: 08/06/21 08:03 - History of Present Illness HPI narrative: 1 week history of right wrist pain and numbness of her right hand. No injury. However, states that her wrist hurts whenever she bumps it on anything. Her pain is in the radial aspect of the wrist and increases with movement of her wrist and thumb. States that she wakes up at night sometimes with her entire hand numb, all fingers. She has been using Tylenol without relief. - Related Data Home Medications Medication Instructions Recorded Confirmed testosterone cypionate 200 mg/mL 200 mg IM WEEKLY ml 07/16/20 06/01/21 intramuscular oil Previous Rx's Medication Instructions Recorded triamcinolone acetonide 0.5 % 1 applic TOPICAL TID #15 g 03/05/21 topical cream amoxicillin 500 mg capsule 500 mg PO Q12H 10 Days #20 cap 06/01/21 ondansetron 4 mg disintegrating 4 mg PO Q6H PRN 3 Days #12 tab 06/01/21 tablet Brompheniramine/Pseudoephed/Dm 5 ml PO Q6HP PRN #240 ml 06/26/21 [Bromfed Dm Cough Syrup] Ondansetron [
--- NOTE | 2021-08-06 08:14 | PC.NURSE ---
Notified Rad of wrist xray
--- NOTE | 2021-08-06 08:21 | PC.NURSE ---
Pt returned from Rad
--- NOTE | 2021-08-06 08:54 | PC.NURSE ---
thumb spica applied to rt wrist. instructions on cast care given
[2021-08-06 08:55] VITALS: BP 128/65; PULSE 65; RESP 16; TEMP 36.6; O2SAT 97
== END 2021-08-06 08:56 | disposition home or self-care (01) ==
PROVIDERS: Emergency Provider Emergency Medicine; PCP Nurse Practitioner Family
DX: M65.4 Radial styloid tenosynovitis [de Quervain] (principal); F32.A Depression, unspecified; Z79.1 Long term (current) use of non-steroidal anti-inflammatories (NSAID); Z79.899 Other long term (current) drug therapy; Z87.891 Personal history of nicotine dependence
CPT/HCPCS: 73100; 99283

== ENCOUNTER 2021-10-12 16:23 | Outpatient (RCR) | payer MEDICAID, SELFPAY | END 2021-10-12 17:25 | disposition home or self-care (01) | LOC: OT 16:23 | PROVIDERS: Visit Provider Orthopaedic Surgery | DX: G56.01 Carpal tunnel syndrome, right upper limb (principal); M65.4 Radial styloid tenosynovitis [de Quervain] | CPT/HCPCS: 97763 ==

== ENCOUNTER 2021-12-22 16:38 | Emergency (ER) | payer MEDICAID, SELFPAY ==
[2021-12-22 17:26] VITALS: BP 147/79; PULSE 78; RESP 18; TEMP 37.1; O2SAT 100; BMI 34.9
--- NOTE | 2021-12-22 17:44 | HMH.EDUTC ---
[facility] [place] Disposition Clinical Impression: Sinusitis Qualifiers: Sinusitis location: unspecified location Chronicity: unspecified Qualified Code(s): J32.9 - Chronic sinusitis, unspecified Disposition: Home, Self-Care Condition on Discharge: Good Instructions: Sinusitis, Sinus Headache, DI for Sinusitis Additional Instructions: *Monitor Temp, Over the counter Motrin or Tylenol as directed/as needed Tylenol every 4 hours and Motrin every 6 hours (as long as your family doctor has told you that you can take it) for fever or pain. and straight to ER if unable to lower temp less than 101.0 after medication given *Warm salt water gargles may help to soothe the throat *Throat Lozenges *Warm fluids like tea with honey may help to soothe the throat *Sleep elevated *Humidifier/Vaporizer Follow up IMMEDIATELY for new or worsening symptoms or no Noticeable improvement over the next 48-72 hours. 911 for difficulty breathing or swallowing You were tested for today for COVID19 your test result should be back in the next 24-48 hours, you may check your results on the [facility] [employer] [facility] portal Make sure to take your Vitamins Vit. C Vit D and Zinc if you can take them Prescriptions: predniSONE [Prednisone 20mg Tab] 20 mg PO BID 5 Days #10 tab [facility]: [facility] Azithromycin [Z-Arun 250mg Tab] 250 mg PO DIRECTED #6 tab Transmission Status: Pending to [facility] Referrals: Shilo King APRN [Primary Care Provider] - As needed Forms: Work/School Release Time of Disposition: 17:54 Medical Decision Making - Alex Inquiry Pt receiving controlled substance: No Alex was queried for this patient: No Vital Signs: 12/22/21 17:26 Temperature 98.8 F Temperature Source Oral Pulse Rate [Radial] 78 Respiratory Rate 18 Blood Pressure [Right Arm] 147/79 H Blood Pressure Mean [Right Arm] 101 Blood Pressure Source [Right Arm] Automatic Cuff Blood Pressure Position [Right Arm] Sitting 02 Sat by Pulse Oximetry 100 Oxygen Delivery Method Room Air Orders (Tests/Meds): ORDERS Category Date Time Status Covid-19 Nasal PCR ([facility]) Routine Lab 12/22/21 17:20 Received Medical Decision Narrative: Patient state that she is on testosterone but she has taken prednisone in the past without complications or reactions [facility] [place] HPI - General Stated complaint: Ear acheand covid test Time Seen by Provider: 12/22/21 17:44 Mode of Arrival: Ambulatory Source of Information: Patient Limitations: No Limitations Description of Symptoms (Recalled from Triage Doc. by RN): EARACHE, CONGESTION, MIGRAINE HEENT Symptoms (Recalled from RN notes): Yes Resp Symptoms (Recalled from RN notes): Yes Skin Symptoms (Recalled from RN notes): No MS Symptoms (Recalled from RN notes): No Functional Status (Recalled from RN notes): NA/ - History of Present Illness Provider Complaint: Patient state that she has been having sinus pain and pressure for over a week but pain and pressure in her ears for last couple of days States that her boss tested positive for COVID but she hasnt really been around her thinks it is just a sinus infection but wants to get tested to be safe - Related Data Home Medications Medication Instructions Recorded Confirmed testosterone cypionate 200 mg/mL 200 mg IM WEEKLY ml 07/16/20 11/23/21 intramuscular oil Previous Rx's Medication Instructions Recorded triamcinolone acetonide 0.5 % 1 applic TOPICAL TID #15 g 03/05/21 topical cream Ibuprofen [Ibuprofen 800mg 800 mg PO Q8HP PRN #21 tab 08/06/21 Tablet] Azithromycin [Z-Arun 250mg Tab] 250 mg PO DIRECTED #6 tab 12/22/21 predniSONE [Prednisone 20mg 20 mg PO BID 5 Days #10 tab 12/22/21 Tab] Allergies Allergy/AdvReac Type Severity Reaction Status Date / Time No Known Allergies Allergy Verified 11/23/21 13:13 - Worker's Comp Is this a Worker's Comp case?: No [facility] History - Hepatitis A Sc
[2021-12-22 18:03] VITALS: BP 147/79; PULSE 78; RESP 18; TEMP 37.1; O2SAT 100
== END 2021-12-22 18:06 | disposition home or self-care (01) ==
PROVIDERS: Emergency Provider Nurse Practitioner; PCP Nurse Practitioner Family
DX: J32.9 Chronic sinusitis, unspecified (principal); Z20.822 Contact with and (suspected) exposure to COVID-19
CPT/HCPCS: 99212; C9803; G0463; U0003; U0005

== ENCOUNTER 2022-01-02 11:18 | Emergency (ER) | payer MEDICAID, SELFPAY ==
--- NOTE | 2022-01-02 11:26 | HMH.EDUTC ---
[facility] [place] Disposition Clinical Impression: Pharyngitis Qualifiers: Pharyngitis/tonsillitis etiology: unspecified etiology Qualified Code(s): J02.9 - Acute pharyngitis, unspecified Disposition: Home, Self-Care Condition on Discharge: Good Instructions: DI for Pharyngitis/Tonsillopharyngitis -- Adult, DI for COVID-19 (Suspected or Confirmed ), Preventing the Spread of Coronavirus Discharge Instructions Additional Instructions: Drink plenty of fluids. Take tylenol or ibuprofen for pain or fever. Take the medications as directed. Follow up with your regular doctor. GO TO THE ER FOR ANY WORSENING SYMPTOMS Quarantine until you know the results of your covid-19 test. Notify your school or workplace of your results and follow their instructions regarding return to work/school. Prescriptions: Brompheniramine/Pseudoephed/Dm [Bromfed Dm Cough Syrup] 5 ml PO Q6HP PRN #240 ml PRN Reason: Cough Transmission Status: Received by [facility] predniSONE [Deltasone 10mg tablet] 10 mg PO BID 3 Days #6 tab Transmission Status: Received by [facility] Azithromycin [Z-Arun 250mg Tab*] 250 mg PO UD DOSE PK #6 tab Transmission Status: Received by [facility] Referrals: Shilo King APRN [Primary Care Provider] - Forms: Work/School Release Time of Disposition: 12:10 Medical Decision Making - Medical Records Medical records reviewed: No: I reviewed the patient's medical records. - Alex Inquiry Pt receiving controlled substance: No Vital Signs: 01/02/22 11:45 01/02/22 12:18 Temperature 98.5 F 98.5 F Temperature Source Oral Pulse Rate 98 H Pulse Rate [Left] 98 H Respiratory Rate 16 16 Blood Pressure 127/80 Blood Pressure [Right Arm] 127/80 Blood Pressure Mean [Right Arm] 95 02 Sat by Pulse Oximetry 98 - Lab Data Lab results reviewed: Yes: I reviewed the patient's lab results. Lab Results 01/02/22 12:07: Strep Scn Rapid [facility] Negative Orders (Tests/Meds): ORDERS Category Date Time Status Strep Screen Confirmation Stat Micro 01/02/22 12:07 Received [facility] [place] HPI - General Stated complaint: sore throat, bilateral ear pain Time Seen by Provider: 01/02/22 11:26 - History of Present Illness Provider Complaint: She states that for the past 2 days she has had sinus congestion, sore throat, and a cough. - Related Data Home Medications Medication Instructions Recorded Confirmed testosterone cypionate 200 mg/mL 200 mg IM WEEKLY ml 07/16/20 11/23/21 intramuscular oil Previous Rx's Medication Instructions Recorded triamcinolone acetonide 0.5 % 1 applic TOPICAL TID #15 g 03/05/21 topical cream Ibuprofen [Ibuprofen 800mg 800 mg PO Q8HP PRN #21 tab 08/06/21 Tablet] Azithromycin [Z-Arun 250mg Tab] 250 mg PO DIRECTED #6 tab 12/22/21 predniSONE [Prednisone 20mg 20 mg PO BID 5 Days #10 tab 12/22/21 Tab] Azithromycin [Z-Arun 250mg Tab*] 250 mg PO UD DOSE PK #6 tab 01/02/22 Brompheniramine/Pseudoephed/Dm 5 ml PO Q6HP PRN #240 ml 01/02/22 [Bromfed Dm Cough Syrup] predniSONE [Deltasone 10mg tablet] 10 mg PO BID 3 Days #6 tab 01/02/22 Allergies Allergy/AdvReac Type Severity Reaction Status Date / Time No Known Allergies Allergy Verified 01/02/22 11:49 [facility] History - Hepatitis A Screen Attestation statement:: This patient has been screened for Hepatitis A risk factors. I have reviewed the patient's past medical history: Yes Medical History: Reports:: Depression Denies:: Diabetes Mellitus Type 1, Diabetes Mellitus Type 2, MRSA Comment: right hand pain Other Surgeries: Yes: No Previous Surgery Amputation: No Fractures: No - Social History Smoking Status: Former smoker Tobacco Type: cigarettes # Packs/Day (cigarettes): 1 Alcohol Intake: current Alcohol Intake Frequency:: holidays/special occasions only Substance Use Type: denies use Occupational Status: employed Housing: house Household Members: jak
[2022-01-02 11:45] VITALS: BP 127/80; PULSE 98; RESP 16; TEMP 36.9; O2SAT 98; BMI 34.7
[2022-01-02 12:09] LABS: UTC Strep Screen (Rapid) Negative (Negative)
[2022-01-02 12:18] VITALS: BP 127/80; PULSE 98; RESP 16; TEMP 36.9
== END 2022-01-02 12:18 | disposition home or self-care (01) ==
PROVIDERS: Emergency Provider Nurse Practitioner Family; PCP Nurse Practitioner Family
DX: J02.9 Acute pharyngitis, unspecified (principal); H92.03 Otalgia, bilateral; R09.81 Nasal congestion; F32.A Depression, unspecified; Z20.822 Contact with and (suspected) exposure to COVID-19; Z79.52 Long term (current) use of systemic steroids; Z87.891 Personal history of nicotine dependence; Z83.3 Family history of diabetes mellitus
CPT/HCPCS: 87880; 99213; C9803; G0463; U0003; U0005

== ENCOUNTER 2022-01-04 15:18 | Emergency (ER) | payer MEDICAID, SELFPAY ==
[2022-01-04 15:25] VITALS: BP 136/88; PULSE 81; RESP 18; TEMP 37; O2SAT 98; BMI 32.5
--- NOTE | 2022-01-04 15:40 | HMH.EDUTC ---
[facility] [place]ression: Encounter to obtain excuse from work Disposition: Home, Self-Care Condition on Discharge: Good Instructions: Sore Throat Additional Instructions: *Monitor Temp, Over the counter Motrin or Tylenol as directed/as needed Tylenol every 4 hours and Motrin every 6 hours (as long as your family doctor has told you that you can take it) for fever or pain. and straight to ER if unable to lower temp less than 101.0 after medication given *Warm salt water gargles may help to soothe the throat *Throat Lozenges *Warm fluids like tea with honey may help to soothe the throat *Sleep elevated *Humidifier/Vaporizer Continue prescribed medication Return if needed Follow up IMMEDIATELY for new or worsening symptoms or no Noticeable improvement over the next 48-72 hours. 911 for difficulty breathing or swallowing Referrals: Chandra Moreno MD [Primary Care Provider] - As needed Forms: Work/School Release Medical Decision Making - Alex Inquiry Pt receiving controlled substance: No Alex was queried for this patient: No Vital Signs: 01/04/22 15:25 Temperature 98.6 F Temperature Source Oral Pulse Rate [Left Brachial] 81 Respiratory Rate 18 Blood Pressure [Left Arm] 136/88 Blood Pressure Mean [Left Arm] 104 Blood Pressure Source [Left Arm] Automatic Cuff Blood Pressure Position [Left Arm] Sitting 02 Sat by Pulse Oximetry 98 Oxygen Delivery Method Room Air [facility] [place] - General Stated complaint: sore throat, cough, STEIN Time Seen by Provider: 01/04/22 15:40 Mode of Arrival: Ambulatory Source of Information: Patient Limitations: No Limitations Description of Symptoms (Recalled from Triage Doc. by RN): PATIENT C/O RUNNY NOSE, COUGH, AND FEELING WEAK X 1 WEEK. SHE REPORTS SHE WAS SEEN ON 01/02/22 AND GIVEN ANTIBIOTICS FOR STREP, BUT IS NOT FEELING BETTER HEENT Symptoms (Recalled from RN notes): Yes Resp Symptoms (Recalled from RN notes): Yes Skin Symptoms (Recalled from RN notes): No MS Symptoms (Recalled from RN notes): No Functional Status (Recalled from RN notes): WNL - History of Present Illness Provider Complaint: Patient states that she hasnt felt well for over a week States that she has been feeling achy tired weak and having sore throat States that she was seen on 01/02/22 and took antibiotics for 2 days but not feeling any better States that she was suppose to go back to work today but wasnt feeling well so she stayed home and came in to get a note for work - Related Data Home Medications Medication Instructions Recorded Confirmed testosterone cypionate 200 mg/mL 200 mg IM WEEKLY ml 07/16/20 01/04/22 intramuscular oil Allergies Allergy/AdvReac Type Severity Reaction Status Date / Time No Known Allergies Allergy Verified 01/02/22 11:49 - Worker's Comp Is this a Worker's Comp case?: No [facility] History - Hepatitis A Screen Attestation statement:: This patient has been screened for Hepatitis A risk factors. I have reviewed the patient's past medical history: Yes Medical History: Reports:: Depression Denies:: Diabetes Mellitus Type 1, Diabetes Mellitus Type 2, MRSA Comment: right hand pain Other Surgeries: Yes: No Previous Surgery Amputation: No Fractures: No - Social History Smoking Status: Current every day smoker Tobacco Type: cigarettes # Packs/Day (cigarettes): 1 Alcohol Intake: never Alcohol Intake Frequency:: holidays/special occasions only Substance Use Type: denies use Occupational Status: other Housing: house Household Members: family - Psychiatric History Pschychiatric History:: Reports:: Depression Family Hx:: Diabetes ROS Obtained: Yes All systems reviewed & no additional complaints, Yes Systems reviewed as appropriate & no additional complaints - Constitutional Constitutional: Reports system reviewed and no additional complaints, except as docu, Reports body ache, Reports chills, Reports fatigue, Reports headache(s) - ENT Ears, N
[2022-01-04 15:45] VITALS: BP 136/88; PULSE 81; RESP 18; TEMP 37; O2SAT 98
== END 2022-01-04 15:48 | disposition home or self-care (01) ==
PROVIDERS: Emergency Provider Nurse Practitioner; PCP Emergency Medicine
DX: J02.9 Acute pharyngitis, unspecified (principal); R05.9 Cough, unspecified; R09.81 Nasal congestion
CPT/HCPCS: 99211; G0463

== ENCOUNTER 2022-02-10 03:14 | Emergency (ER) | payer MEDICAID, SELFPAY ==
[2022-02-10] VITALS (7 sets, daily range): BP systolic 114–147; BP diastolic 70–89; PULSE 72–93; RESP 17–21; TEMP 36.6–36.7; O2SAT 95–99; BMI 32.9
--- NOTE | 2022-02-10 03:13 | ECG_ITS ---
APPROVED REPORT Exam: Resting ECG HR:84 bpm ECG Measurements Heart Rate 84 AXES KS 143 P 63 QRSd 90 QRS 61 QT 306 T 1 QTc 348 Conclusion SINUS RHYTHM NONSPECIFIC T-WAVE ABNORMALITY BORDERLINE ECG UNCONFIRMED REPORT Electronically signed by : Dontrell Hernandez MD 02/11/2022 09:53:25
--- NOTE | 2022-02-10 03:19 | XR_ITS ---
PROCEDURE INFORMATION: Exam: XR Chest Exam date and time: 02/10/2022 3:32 AM Age: 26 years old Clinical indication: Shortness of breath; Sternal or substernal pain; Additional info: Chest pain TECHNIQUE: Imaging protocol: Radiologic exam of the chest. Views: 1 view. COMPARISON: CR XR CHEST AP 10/13/2019 9:59 PM FINDINGS: Lungs: Unremarkable. No consolidation. Pleural spaces: Unremarkable. No pleural effusion. No pneumothorax. Heart/Mediastinum: Unremarkable. No cardiomegaly. Bones/joints: Unremarkable. IMPRESSION: No acute findings.
--- NOTE | 2022-02-10 03:22 | PC.NURSE ---
RAD at for CXR
[2022-02-10 03:28] LABS: POC Glucose,Bedside 79 (70-110)
[2022-02-10 03:34] LABS: Basophils # 0.2 K/mm3 (0-0.2); Basophils % 1.8 % (0.1-2.0); Eosinophils # 0.1 K/mm3 (0.0-0.4); Hematocrit 52.7 % (37.0-47.0); Hemoglobin 16.4 g/dL (12.2-16.2); Lymphocytes # 2.6 K/mm3 (0.7-4.5); Lymphocytes % 21.6 % (10-50); Mean Corpuscular HGB Conc 31.1 g/dL (31.8-35.4); Mean Corpuscular Hemoglobin 28.9 pg (27.0-31.2); Mean Corpuscular Volume 92.9 fl (81-99); Mean Platelet Volume 8.8 fl (7.4-10.4); Monocytes # 0.6 K/mm3 (0.1-1.0); Monocytes % 4.8 % (1.7-9.3); Neutrophils # 8.5 K/mm3 (1.8-7.8); Neutrophils % 70.7 % (37.0-80.0); Platelet Count 328 K/mm3 (142-424); Red Blood Count 5.67 M/mm3 (4.20-5.40); Red Cell Distribution Width 12.9 % (11.5-17.5)
[2022-02-10 03:35] LABS: Chloride 105 mmol/L (98-107); Potassium 3.7 mmoL/L (3.5-5.1); Sodium 140 mmol/L (136-145)
[2022-02-10 03:38] LABS: Blood Urea Nitrogen 5 mg/dl (7-17); Creatinine Clearance Estimated 111 mL/min (50-200); Estimated Glomerular Filt Rate 68 ml/min (>60); GFR (African American) 82 ML/MIN (>60)
[2022-02-10 03:39] LABS: Anion Gap 11.7 mEq/L (5-15); Calcium 8.7 mg/dl (8.4-10.2); Carbon Dioxide 27 mmol/L (22.0-30.0); Glucose 96 mg/dl (74-100)
--- NOTE | 2022-02-10 03:55 | PC.NURSE ---
Addendum entered by Cathi Camargo RN 02/10/22 04:18: Late entry: this occurred at 0319 Original Note: Pt concerned her recent dizziness could be low blood sugar d/t the dizziness is relieved with candy. Bedside FS obtained and is 79.
[2022-02-10 03:57] LABS: Troponin I < 0.01 ng/ml (0.00-0.034)
--- NOTE | 2022-02-10 04:06 | HMH.EDCP ---
Discharge Plan Disposition Patient Disposition: Home, Self-Care Chief Complaint: Chest Pain Prescriptions Prescriptions: No Action testosterone cypionate 200 mg/mL oil 100 mg IM WEEKLY Referrals Follow up/Referrals: Chandra Moreno MD [Primary Care Provider] - See instructions Clinical Impressions Clinical Impression: Atypical chest pain Instructions Patient Instructions: DI for Atypical Chest Pain Discharge ED Provider: Chandra Moreno Chest Pain HPI General Chief Complaint: Chest Pain Stated Complaint: chest pain Time Seen by Provider: 02/10/22 04:06 Mode of Arrival: Family Vehicle Source of Information: Patient, Significant Other and Medical Record Limitations: No Limitations Description of Symptoms (Recalled from ER Triage Doc. by RN): Pt c/o midsternal chest pain that began @ 2200 02/09. States it has been intermittent but felt like it was a lot worse tonight and had to leave work . Denies any radiaiting pain to abd, back, arm, or neck. Also, reports for the last mn has had issues with blurry vision with dizziness. Denies any current dizziness or vision loss. Denies n/v/d. Denies cough. Pt does report c/o exterional SOA. No significant PMH but is taking testosterone injections weekly. Of note, pt stopped smoking cigarettes about 1 mn ago and last tried a vape pen with nicotene. History of Present Illness HPI narrative: acute onset of chest pain with sob - chest pain started tonight and has sob x 1 week complaint: chest pain indicative of cardiac Onset (ago): hour(s) Duration: intermittent Activity at onset: during rest Pain location: substernal Severity: moderate Quality: aching Associated symptoms: nausea Risk Factors for CAD: Family Hx of CAD Treatments prior to or on arrival for Cardiac Chest Pain: none KIMBERLY Score for Non-Stemi Age of Patient: <30 years old Heart Rate: 70-89 bpm Systolic Blood Pressure: 140-159 mmHg Serum Creatinine: 0.80-1.19 mg/dl CHF [place] Class: I-No CHF Other Risk Factors: None Non-Stemi Risk Score: 40 Related Data On Oral Contraceptives: No Home Medications Medication Instructions Recorded Confirmed testosterone cypionate 200 mg/mL 100 mg IM WEEKLY TRANSITION 07/16/20 02/10/22 intramuscular oil Allergies Allergy/AdvReac Type Severity Reaction Status Date / Time No Known Allergies Allergy Verified 01/02/22 11:49 PFSH PFSH Social History Smoking Status: Former smoker alcohol intake: never counseling provided: provider counseling substance use type: denies use current occupational status: other Travel in the last 8 weeks: None household members: family housing: house ROS Obtained: Yes All systems reviewed & no additional complaints except as documented Physical Exam General General appearance: alert Head Head exam: normocephalic Eye Eye exam: Present PERRL and EOMI ENT ENT exam: Present mucous membranes dry Neck Neck exam: Present trachea midline; Absent full ROM Respiratory Respiratory exam: Present normal lung sounds bilaterally; Absent respiratory distress Cardiovascular Cardiovascular exam: Present regular rate; Absent systolic murmur Abdominal Exam Abdominal exam: Present soft; Absent tenderness Extremities Exam Extremities exam: Absent calf tenderness Neurological Exam Neurological exam: Present alert, oriented X3 and CN II-XII intact Psychiatric Psychiatric exam: Present normal affect Skin Skin exam: Absent rash Medical Decision Making Medical Records Medical records reviewed: Yes I reviewed the patient's medical records. Alex Inquiry Pt receiving controlled substance: No Vital Signs: 02/10/22 03:15 02/10/22 03:21 02/10/22 03:30 Temperature 98.1 F Temperature Source Oral Pulse Rate 84 79 Pulse Rate [Right] 93 H Respiratory Rate 20 Blood Pressure 126/81 Blood Pressure [Right Arm] 147/89 H Blood Pressure Mean [Right Arm] 108 Blood Pressure Source [Right Arm] Automatic C
--- NOTE | 2022-02-10 04:13 | CT_ITS ---
PROCEDURE INFORMATION: Exam: CTA Chest With Contrast Exam date and time: 02/10/2022 4:18 AM Age: 26 years old Clinical indication: Shortness of breath; Additional info: SOB TECHNIQUE: Imaging protocol: Computed tomographic angiography of the chest with contrast. 3D rendering (Not supervised by radiologist): MIP and/or 3D reconstructed images were created by the technologist. Radiation optimization: All CT scans at this facility use at least one of these dose optimization techniques: automated exposure control; mA and/or kV adjustment per patient size (includes targeted exams where dose is matched to clinical indication); or iterative reconstruction. Contrast material: ISOVUE; Contrast volume: 70 ml; Contrast route: INTRAVENOUS (IV); COMPARISON: CR XR CHEST PORTABLE 02/10/2022 3:32 AM FINDINGS: Pulmonary arteries: Normal. No pulmonary emboli. Aorta: Unremarkable. No aortic aneurysm. No aortic dissection. Lungs: Unremarkable. No consolidation. No masses. Pleural spaces: Unremarkable. No pneumothorax. No pleural effusion. Heart: Unremarkable. No coronary artery calcifications. No cardiomegaly. No pericardial effusion. Lymph nodes: Unremarkable. No enlarged lymph nodes. Bones/joints: Unremarkable. No acute fracture. Soft tissues: Unremarkable. IMPRESSION: No acute findings.
--- NOTE | 2022-02-10 04:16 | PC.NURSE ---
Radiology notified of new order for CTA PE protocol, order placed by .
--- NOTE | 2022-02-10 05:47 | PC.NURSE ---
Update pt & SO with POC, drawing 2nd troponin for series
[2022-02-10 06:10] LABS: Troponin I < 0.01 ng/ml (0.00-0.034)
== END 2022-02-10 05:58 | disposition home or self-care (01) ==
PROVIDERS: Emergency Provider Emergency Medicine; PCP Emergency Medicine
DX: R07.9 Chest pain, unspecified (principal); F17.200 Nicotine dependence, unspecified, uncomplicated; R42 Dizziness and giddiness; Z79.890 Hormone replacement therapy
CPT/HCPCS: 71045; 71275; 80048; 82962; 84484; 85025; 93005; 99284; Q9967

== ENCOUNTER 2022-02-22 19:27 | Emergency (ER) | payer MEDICAID, SELFPAY ==
--- NOTE | 2022-02-22 19:52 | EXP.UTC ---
Discharge Plan Disposition Patient Disposition: Home, Self-Care Condition: Good Prescriptions Prescriptions: New azithromycin [Zithromax] 250 mg tablet 250 mg PO UD DOSE PK Qty: 6 0RF Rx Instructions: Take two (2) tablets today, then one (1) tablet days #2 thru #5 methylprednisolone 4 mg Tablets,Dose Pack 4 mg PO DIRECTED Qty: 21 0RF No Action testosterone cypionate 200 mg/mL oil 100 mg IM WEEKLY Referrals Follow up/Referrals: Chandra Moreno MD [Primary Care Provider] - See instructions Clinical Impressions Clinical Impression: Sinusitis Stand Alone Forms Stand Alone Forms: Work/School Release Instructions Patient Instructions: Sinusitis, DI for Sinusitis Discharge ED Provider: Earl Payton [facility] [place] HPI General Stated complaint: runny nose, bilateral ear pain, congestion Time Seen by Provider: 02/22/22 19:52 History of Present Illness Provider Complaint: She c/o sore throat, chills, body aches and malaise for the past 2 days. Related Data Home Medications Medication Instructions Recorded Confirmed testosterone cypionate 200 mg/mL 100 mg IM WEEKLY TRANSITION 07/16/20 02/10/22 intramuscular oil Previous Rx's Medication Instructions Recorded azithromycin 250 mg tablet 250 mg PO UD DOSE PK #6 tabs 02/22/22 (Zithromax) methylprednisolone 4 mg tablets in 4 mg PO DIRECTED #21 tabs 02/22/22 a dose pack Allergies Allergy/AdvReac Type Severity Reaction Status Date / Time No Known Allergies Allergy Verified 01/02/22 11:49 PFSH PFSH Social History Smoking Status: Former smoker alcohol intake: never counseling provided: provider counseling substance use type: denies use current occupational status: other Travel in the last 8 weeks: None household members: family housing: house ROS Obtained: Yes All systems reviewed & no additional complaints except as documented Constitutional Constitutional: Reports chills and Reports fever(s) Eyes Eyes: Denies eye discharge ENT Ears, Nose, Mouth, and Throat: Reports as per HPI Cardiovascular Cardiovascular: Denies chest pain Respiratory Respiratory: Denies chest congestion and Reports cough Gastrointestinal Gastrointestingal: Reports nausea; Denies abdominal pain, constipation, cramping, diarrhea or vomiting Musculoskeletal Musculoskeletal: Denies arthralgias Integumentary/Breasts Skin/Breast: Denies rash Neurologic Neurologic: Denies paresthesias Physical Exam General General appearance: alert and in no apparent distress Head Head exam: atraumatic, normocephalic and normal inspection Eye Eye exam: Present normal appearance, PERRL and EOMI ENT ENT exam: Present mucous membranes moist and normal external ear exam Expanded ENT Exam TM/Canal exam: Bilateral TM: erythema and bulging Nose exam: Absent sinus tenderness Mouth exam: Present normal external inspection; Absent drooling Teeth exam: Present normal inspection Throat exam: Present tonsillar erythema, tonsillomegaly and tonsillar exudate Neck Neck exam: Present normal inspection, full ROM and trachea midline; Absent tenderness, meningismus or lymphadenopathy Chest Chest inspection: Present normal inspection and symmetric chest wall rise; Absent tenderness Respiratory Respiratory exam: Present normal lung sounds bilaterally; Absent respiratory distress, wheezes or stridor Cardiovascular Cardiovascular exam: Present regular rate and normal rhythm; Absent systolic murmur or diastolic murmur Abdominal Exam Abdominal exam: Present soft and normal bowel sounds; Absent distention, tenderness, guarding, rebound or rigidity Extremities Exam Extremities exam: Present normal inspection and normal capillary refill; Absent calf tenderness Back Exam Back exam: Present normal inspection and full ROM; Absent tenderness, CVA tenderness (R) or CVA tenderness (L) Neurological Exam Neurological exam: Present alert, oriented X3 and CN II-XII intact Ps
[2022-02-22 19:55] VITALS: BP 127/84; PULSE 82; RESP 15; TEMP 36.9; O2SAT 98; BMI 34.7
[2022-02-22 20:30] VITALS: BP 127/84; PULSE 82; RESP 15; TEMP 36.9; O2SAT 98
== END 2022-02-22 20:31 | disposition home or self-care (01) ==
PROVIDERS: Emergency Provider Nurse Practitioner Family; PCP Emergency Medicine
DX: J32.9 Chronic sinusitis, unspecified (principal)
CPT/HCPCS: 99212; G0463

== ENCOUNTER 2022-03-16 10:37 | Emergency (ER) | payer MEDICAID, SELFPAY ==
[2022-03-16 11:16] VITALS: BP 126/72; PULSE 101; RESP 18; TEMP 36.6; O2SAT 98; BMI 29.0
[2022-03-16 11:28] LABS: UTC Influenza A Antigen Negative (Negative); UTC Influenza B Antigen Negative (Negative)
--- NOTE | 2022-03-16 11:33 | EXP.UTC ---
Discharge Plan Disposition Patient Disposition: Home, Self-Care Condition: Good Prescriptions Prescriptions: No Action testosterone cypionate 200 mg/mL oil 100 mg IM WEEKLY azithromycin [Zithromax] 250 mg tablet 250 mg PO UD DOSE PK Qty: 6 0RF Rx Instructions: Take two (2) tablets today, then one (1) tablet days #2 thru #5 methylprednisolone 4 mg Tablets,Dose Pack 4 mg PO DIRECTED Qty: 21 0RF Referrals Follow up/Referrals: Shilo King APRN [Primary Care Provider] - See instructions Activity Restrictions/Add. Instructions Additional Instructions/Restrictions: *Monitor Temp, Over the counter Motrin or Tylenol as directed/as needed Tylenol every 4 hours and Motrin every 6 hours (as long as your family doctor has told you that you can take it) for fever or pain. and straight to ER if unable to lower temp less than 101.0 after medication given *Warm salt water gargles may help to soothe the throat *Throat Lozenges? *Warm fluids like tea with honey may help to soothe the throat? *Sleep elevated *Humidifier/Vaporizer Follow up IMMEDIATELY for new or worsening symptoms or no Noticeable improvement over the next 48-72 hours. 911 for difficulty breathing or swallowing You were tested for today for COVID19 your test result should be back in the next 24-48 hours, you may check your results on the [facility] Clinical Impressions Clinical Impression: Upper respiratory infection, viral Stand Alone Forms Stand Alone Forms: Work/School Release Instructions Patient Instructions: DI for Viral Upper Respiratory Infection -- Adult Discharge ED [place] [facility] [place] General Stated complaint: fever, cough, body aches, congestion Mode of Arrival: Ambulatory Source of Information: Patient Limitations: No Limitations Time Seen by Provider: 03/16/22 11:33 Description of Symptoms (Recalled from Triage Doc. by RN): pt comes in with c/o cough, chillls, fever, body aches, congestion, diarrhea for 2 days HEENT Symptoms (Recalled from RN notes): Yes Resp Symptoms (Recalled from RN notes): Yes Skin Symptoms (Recalled from RN notes): No MS Symptoms (Recalled from RN notes): No Functional Status (Recalled from RN notes): n/a History of Present Illness Provider Complaint: Patient states that they havent been feeling well for several days Having body aches, chills, fever and diarrhea States that other room mates have been having same symptoms Related Data Home Medications Medication Instructions Recorded Confirmed testosterone cypionate 200 mg/mL 100 mg IM WEEKLY TRANSITION 07/16/20 03/16/22 intramuscular oil Previous Rx's Medication Instructions Recorded azithromycin 250 mg tablet 250 mg PO UD DOSE PK #6 tabs 02/22/22 (Zithromax) methylprednisolone 4 mg tablets in 4 mg PO DIRECTED #21 tabs 02/22/22 a dose pack Allergies Allergy/AdvReac Type Severity Reaction Status Date / Time No Known Allergies Allergy Verified 03/16/22 11:20 Worker's Comp Is this a Worker's Comp case?: No PFSH PFSH Social History Smoking Status: Former smoker alcohol intake: never counseling provided: provider counseling substance use type: denies use current occupational status: other Travel in the last 8 weeks: None household members: family housing: house ROS Obtained: Yes All systems reviewed & no additional complaints except as documented and Yes Systems reviewed as appropriate & no additional complaints except as documented Constitutional Constitutional: Reports system reviewed and no additional complaints, except as documented, Reports as per HPI, Reports body ache, Reports chills, Reports fatigue and Reports fever(s) ENT Ears, Nose, Mouth, and Throat: Reports system reviewed and no additional complaints, except as documented, Reports as per HPI and Reports nasal congestion [facility]ova
[2022-03-16 11:46] VITALS: BP 126/72; PULSE 101; RESP 18; TEMP 36.6
[2022-03-16 12:34] LABS: Adenovirus,PCR Not Detected (NotDetected); Bordetella Pertussis Not Detected (NotDetected); Chlamydophila Pneumoniae, PCR Not Detected (NotDetected); Coronavirus 19, PCR Not Detected (NotDetected); Coronavirus 229E Not Detected (NotDetected); Coronavirus NL63 Not Detected (NotDetected); Coronavirus OC43 Not Detected (NotDetected); Coronovirus HKU1,PCR Not Detected (NotDetected); Human Metapneumovirus Not Detected (NotDetected); Influenza A, PCR Not Detected (NotDetected); Influenza AH1, 2009 Not Detected (NotDetected); Influenza AH1, PCR Not Detected (NotDetected); Influenza B, PCR Not Detected (NotDetected); Mycoplasma Pneumoniae, PCR Not Detected (NotDetected); Parainfluenza 1, PCR Not Detected (NotDetected); Parainfluenza 2, PCR Not Detected (NotDetected); Parainfluenza 3, PCR Not Detected (NotDetected); Parainfluenza 4, PCR Not Detected (NotDetected); Respiratory Syncytial Virus Not Detected (NotDetected); Rhinovirus/Enterovirus Not Detected (NotDetected)
[2022-03-16 18:06] LABS: Influenza AH3,PCR Detected (NotDetected)
--- NOTE | 2022-03-16 20:15 | PC.NURSE ---
ATTEMPTED TO CALL PT. NO ANSWER
== END 2022-03-16 11:57 | disposition home or self-care (01) ==
PROVIDERS: Emergency Provider Nurse Practitioner; PCP Nurse Practitioner Family
DX: J06.9 Acute upper respiratory infection, unspecified (principal)
CPT/HCPCS: 87581; 87632; 87798; 87804; 99212; C9803; G0463; U0003; U0005

== ENCOUNTER 2022-04-13 16:05 | Emergency (ER) | payer MEDICAID, SELFPAY ==
[2022-04-13] VITALS (7 sets, daily range): BP systolic 112–135; BP diastolic 63–78; PULSE 61–82; RESP 16–18; TEMP 36.7–37.1; O2SAT 98–100; BMI 28.8; BMI 32.9
--- NOTE | 2022-04-13 16:58 | EXP.UTC ---
Discharge Plan Disposition Patient Disposition: Still a Patient Condition: Fair Prescriptions Prescriptions: No Action testosterone cypionate 200 mg/mL oil 100 mg IM WEEKLY Referrals Follow up/Referrals: Shilo King APRN [Primary Care Provider] - See instructions Discharge ED Provider: La Watkins [facility] [place] General Stated complaint: AO 04/11 HIT HEAD STEIN, NA, RUNNY NOSE Mode of Arrival: Ambulatory Source of Information: Patient Limitations: No Limitations Time Seen by Provider: 04/13/22 16:59 Description of Symptoms (Recalled from Triage Doc. by RN): PATIENT C/O MIGRAINE, BLURRY VISION, AND SINUS DRAINAGE X 3 DAYS HEENT Symptoms (Recalled from RN notes): Yes Resp Symptoms (Recalled from RN notes): No Skin Symptoms (Recalled from RN notes): No MS Symptoms (Recalled from RN notes): No Functional Status (Recalled from RN notes): WNL History of Present Illness Provider Complaint: Patient states that hit head a couple days ago on right side of forehead with crock pot lid and it mad a little knot' States has had the worst migraine of their life for the last 3 days and had blurry vision with it States has a history of migraines but this is the worst one yet and never had blurry vision as bad as this before States that today it was worse and couldnt watch TV due to the blurry vision so they came in Related Data Home Medications Medication Instructions Recorded Confirmed testosterone cypionate 200 mg/mL 100 mg IM WEEKLY TRANSITION 07/16/20 04/13/22 intramuscular oil Allergies Allergy/AdvReac Type Severity Reaction Status Date / Time No Known Allergies Allergy Verified 03/16/22 11:20 Worker's Comp Is this a Worker's Comp case?: No PFSH PFSH Medical History (Updated 04/13/22 @ 16:57 by Lauren Tirado, RN) Anxiety Depression Migraine Social History (Updated 04/13/22 @ 16:57 by Lauren Tirado, RN) Smoking Status: Former smoker alcohol intake: never counseling provided: provider counseling substance use type: denies use current occupational status: other Travel in the last 8 weeks: None household members: family housing: house ROS Obtained: Yes All systems reviewed & no additional complaints except as documented and Yes Systems reviewed as appropriate & no additional complaints except as documented Constitutional Constitutional: Reports system reviewed and no additional complaints, except as documented, Reports as per HPI and Reports headache(s) Eyes Eyes: Reports system reviewed and no additional complaints, except as documented, Reports as per HPI and Reports blurry vision ENT Ears, Nose, Mouth, and Throat: Reports system reviewed and no additional complaints, except as documented, Reports as per HPI, Reports headache(s), Reports nasal congestion and Reports nasal discharge Cardiovascular Cardiovascular: Reports system reviewed and no additional complaints, except as documented and Reports as per HPI Respiratory Respiratory: Reports system reviewed and no additional complaints, except as documented and Reports as per HPI Gastrointestinal Gastrointestingal: Reports system reviewed and no additional complaints, except as documented and as per HPI Neurologic Neurologic: Reports headache(s) Physical Exam General General appearance: alert and in no apparent distress Respiratory Respiratory exam: Present normal lung sounds bilaterally; Absent respiratory distress or wheezes Cardiovascular Cardiovascular exam: Present regular rate, normal rhythm and normal heart sounds Neurological Exam Neurological exam: Present alert, oriented X3 and normal gait Medical Decision Making Alex Inquiry Pt receiving controlled substance: No Alex was queried for this patient: No Vital Signs: 04/13/22 16:45 Temperature 98.8 F Temperature Source Oral Pulse Rate [Right Brachial] 72 Respiratory Rate 18 Blood Pressure [Right Arm] 126/74 Blood Pressure Mean [Right Arm] 91 Blood Pre
--- NOTE | 2022-04-13 17:19 | CT_ITS ---
PROCEDURE INFORMATION: Exam: CT Head Without Contrast Exam date and time: 04/13/2022 5:40 PM Age: 26 years old Clinical indication: Pain; Headache not specified TECHNIQUE: Imaging protocol: Computed tomography of the head without contrast. Radiation optimization: All CT scans at this facility use at least one of these dose optimization techniques: automated exposure control; mA and/or kV adjustment per patient size (includes targeted exams where dose is matched to clinical indication); or iterative reconstruction. COMPARISON: CT HEAD/BRAIN WO CON 03/28/2021 7:07 AM FINDINGS: Brain: The IACs are grossly normal. No extra-axial fluid collections. No evidence of acute intracranial hemorrhage. No CT evidence of large territory acute or subacute intracranial ischemia/infarct. No intracranial mass lesions. No midline shift or herniation. Cerebral ventricles: Ventricles normal. Pituitary gland and sella: The sella is grossly normal. Paranasal sinuses: Visualized paranasal sinuses are clear. Mastoid air cells: Visualized mastoid air cells are clear. Orbital cavities: Visualized orbital contents demonstrate no acute abnormality. Bones/joints: The calvarium and facial bones demonstrate no acute abnormalities. 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 This has been reported as a potential cause of headache. Soft tissues: The scalp and visualized soft tissues demonstrate no acute abnormality. Vasculature: Borderline high riding left jugular bulb reaching the level of the inferior margin of the left IAC. Sigmoid plate is intact without dehiscence. The visualized major intracranial arterial segments demonstrate no gross abnormality by noncontrast CT. No asymmetric vascular hyperdensities suggestive of thrombosis are identified. Other findings: Saleh-white differentiation is well maintained. IMPRESSION: 1. No acute intracranial process. No intracranial hemorrhage or mass effect. 2. 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 This has been described as a potential source of headache symptoms. 3. 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
--- NOTE | 2022-04-13 17:43 | PC.NURSE ---
pt in CT
--- NOTE | 2022-04-13 17:51 | HMH.EDHA ---
Discharge Plan Disposition Patient Disposition: Home, Self-Care Condition: Fair Prescriptions Prescriptions: No Action testosterone cypionate 200 mg/mL oil 100 mg IM WEEKLY Referrals Follow up/Referrals: Shilo King APRN [Primary Care Provider] - See instructions Osiris Villarreal MD [Staff Physician] - See instructions Clinical Impressions Clinical Impression: Migraine Instructions Patient Instructions: DI for Migraine Discharge ED Provider: Sadiq Ellis Headache HPI General Chief Complaint: Headache Stated Complaint: AO 04/11 HIT HEAD STEIN, NA, RUNNY NOSE Time Seen by Provider: 04/13/22 16:59 Mode of Arrival: Ambulatory Source of Information: Patient Limitations: No Limitations Description of Symptoms (Recalled from ER Triage Doc. by RN): Pt reports migraine x3 days. Reports had a migraine and then got hit in the head with a crock pot lid that fell. Pt reports blurry vision x2 days. Pt reports n/v, light sensitivity. Pt reports hx of migraine but states this migraine is worse than normal. History of Present Illness HPI Narrative: Patient is a 26-year-old male with a past medical history of headache who states that for the last 3 days he has had persistent headache. He says that 3 days ago a lid of a crockpot fell and hit his head. He says that he has had a headache since then but over the last 2 days is gotten progressively worse to the point that he now has blurry vision. He says that he has been sensitive to light. He says that this feels a little bit different than his normal headaches in which it wraps around the back of his head. He denies any numbness or tingling into his extremities. He says that it is both of his eyes that have blurry vision. Denies any visual aura. Denies any chest or abdominal pain. Denies any shortness of breath Related Data Home Medications Medication Instructions Recorded Confirmed testosterone cypionate 200 mg/mL 100 mg IM WEEKLY TRANSITION 07/16/20 04/13/22 intramuscular oil Allergies Allergy/AdvReac Type Severity Reaction Status Date / Time No Known Allergies Allergy Verified 03/16/22 11:20 [facility] History Hepatitis A Screen Attestation statement:: This patient has been screened for Hepatitis A risk factors. Medical History: Reports: Depression; Denies: Diabetes Mellitus Type 1, Diabetes Mellitus Type 2 or MRSA Comment: right hand pain Other Surgeries: Yes No Previous Surgery Amputation: No Fractures: No Social History Smoking Status: Never smoker Tobacco Type: cigarettes # Packs/Day (cigarettes): 1 Alcohol Intake: never Alcohol Intake Frequency:: holidays/special occasions only Substance Use Type: denies use Occupational Status: other Housing: house Household Members: family Psychiatric History Pschychiatric History:: Reports: Depression Family Hx:: Diabetes PFSH PFSH Medical History (Updated 04/13/22 @ 19:36 by Sadiq Ellis MD) Anxiety Depression Migraine Social History (Updated 04/13/22 @ 16:57 by Lauren Tirado RN) Smoking Status: Never smoker alcohol intake: never counseling provided: provider counseling substance use type: denies use current occupational status: other Travel in the last 8 weeks: None household members: family housing: house ROS Obtained: Yes All systems reviewed & no additional complaints except as documented A 14 point review of system was obtained and otherwise negative except per HPI Physical Exam General General appearance: alert and in no apparent distress Head Head exam: atraumatic, normocephalic and normal inspection Eye Eye exam: Present normal appearance, PERRL and EOMI ENT ENT exam: Present normal exam, normal oropharynx, mucous membranes moist, TM's normal bilaterally and normal external ear exam Neck Neck exam: Present normal inspection, full ROM and trachea midline; Absent meningismus or lymphadenopathy Chest Chest inspection: Present normal ins
--- NOTE | 2022-04-13 18:36 | PC.NURSE ---
pt given warm blanket, significant other at BS
--- NOTE | 2022-04-13 19:11 | PC.NURSE ---
report given to manjinderrn
--- NOTE | 2022-04-13 19:27 | PC.NURSE ---
Rechecked pt condition. No needs or complaints voiced.
== END 2022-04-13 19:50 | disposition home or self-care (01) ==
LOC: UTC 16:11 → ER 17:03
PROVIDERS: Emergency Provider Student in an Organized Health Care Education/Training Program; PCP Nurse Practitioner Family
DX: G43.909 Migraine, unspecified, not intractable, without status migrainosus (principal); Z79.890 Hormone replacement therapy
CPT/HCPCS: 70450; 96365; 96367; 96375; 99284; J3475

== ENCOUNTER 2022-05-25 10:40 | Emergency (ER) | payer MEDICAID, SELFPAY ==
[2022-05-25 11:45] VITALS: BP 127/81; PULSE 76; RESP 19; TEMP 36.8; O2SAT 98; BMI 29.2
--- NOTE | 2022-05-25 12:16 | EXP.UTC ---
Discharge Plan Disposition Patient Disposition: Home, Self-Care Condition: Good Prescriptions Prescriptions: New amoxicillin 875 mg tablet 875 mg PO BID Qty: 20 0RF fluticasone propionate [Flonase Allergy Relief] 50 mcg/actuation spray,suspension 1 spray intranasal DAILY Qty: 16 0RF Rx Instructions: administer into each nostril No Action testosterone cypionate 200 mg/mL oil 100 mg IM WEEKLY Referrals Follow up/Referrals: Provider,Referral, MD [Primary Care Provider] - See instructions Activity Restrictions/Add. Instructions Additional Instructions/Restrictions: Drink extra fluids with and between meals. If you have difficulty drinking, try very small amounts of water or suck on ice chips. ? Avoid fruit juices, as these do not replace minerals and can actually increase diarrhea. ? Children and adults can use sports drinks to replenish electrolytes. Younger children and infants should use products formulated for children, like oral rehydration solutions. ? Eat food in small amounts and let your stomach recover. ? Get lots of rest. You may feel tired or weak. ? No greasy or fried foods for the next 24-48 hours BRAT diet Bananas Rice Apples and [place] ? Make sure to drink plenty of liquids ? Return if needed ? You was given an outpatient order for diarrhea panel, please collect specimen and bring back to outpatient lab then call back to the [facility] or follow up with family doctor for results ? Follow up with family doctor in the next 48-72 hours if no improvement or any worsening of symptoms Straight to ER if any life threatneing symptoms Take medication as prescribed for ear infection Clinical Impressions Clinical Impression: Otitis media Instructions Patient Instructions: Middle Ear Infection, Diarrhea Discharge ED Provider: La Watkins [facility] [place] HPI General Stated complaint: Abd pain, diarrhea, LT ear pain Mode of Arrival: Ambulatory Source of Information: Patient Limitations: No Limitations Time Seen by Provider: 05/25/22 12:17 Description of Symptoms (Recalled from Triage Doc. by RN): PATIENT C/O STOMACH ACHE, DIARRHEA, AND LEFT EAR PAIN X 2 DAYS HEENT Symptoms (Recalled from RN notes): Yes Resp Symptoms (Recalled from RN notes): No Skin Symptoms (Recalled from RN notes): No MS Symptoms (Recalled from RN notes): No Functional Status (Recalled from RN notes): WNL History of Present Illness Provider Complaint: Patient states that she thinks she may have a stomach bug States that she has had diarrhea and some cramping for a couple days and pain and pressure in her left ear States that pain in left ear worse today so she came in Related Data Home Medications Medication Instructions Recorded Confirmed testosterone cypionate 200 mg/mL 100 mg IM WEEKLY TRANSITION 07/16/20 05/25/22 intramuscular oil Previous Rx's Medication Instructions Recorded amoxicillin 875 mg tablet 875 mg PO BID #20 tabs 05/25/22 fluticasone propionate 50 1 spray intranasal DAILY #16 grams 05/25/22 mcg/actuation nasal spray,suspension (Flonase Allergy Relief) Allergies Allergy/AdvReac Type Severity Reaction Status Date / Time No Known Allergies Allergy Verified 05/10/22 13:59 Worker's Comp Is this a Worker's Comp case?: No [facility] Disclaimer: The information contained in this section may have been updated after the patient was seen, as this information can be updated by other users. Medical History (Updated 05/25/22 @ 12:27 by La Watkins APRN) Anxiety Depression Migraine Social History (Updated 05/25/22 @ 12:16 by Lauren Tirado RN) Smoking Status: Former smoker alcohol intake: current counseling provided: provider counseling substance use type: former substance user and marijuana current occupational status: employed Travel in the last 8 weeks: None household members: spouse and family ho
[2022-05-25 12:33] VITALS: BP 127/81; PULSE 76; RESP 19; TEMP 36.8; O2SAT 98
== END 2022-05-25 12:35 | disposition home or self-care (01) ==
PROVIDERS: Emergency Provider Nurse Practitioner
DX: H66.90 Otitis media, unspecified, unspecified ear (principal)
CPT/HCPCS: 99212; G0463

== ENCOUNTER 2022-07-05 09:40 | Emergency (ER) | payer MEDICAID, SELFPAY ==
[2022-07-05 09:56] VITALS: BP 98/72; PULSE 76; RESP 17; TEMP 36.6; O2SAT 99; BMI 32.9
--- NOTE | 2022-07-05 10:07 | EXP.UTC ---
Discharge Plan Disposition Patient Disposition: Home, Self-Care Condition: Good Prescriptions Prescriptions: No Action testosterone cypionate 200 mg/mL oil 100 mg IM WEEKLY amoxicillin 875 mg tablet 875 mg PO BID Qty: 20 0RF fluticasone propionate [Flonase Allergy Relief] 50 mcg/actuation spray,suspension 1 spray intranasal DAILY Qty: 16 0RF Rx Instructions: administer into each nostril Referrals Follow up/Referrals: Shilo King APRN [Primary Care Provider] - See instructions Activity Restrictions/Add. Instructions Additional Instructions/Restrictions: *Monitor Temp, Over the counter Motrin or Tylenol as directed/as needed Tylenol every 4 hours and Motrin every 6 hours (as long as your family doctor has told you that you can take it) for fever or pain. and straight to ER if unable to lower temp less than 101.0 after medication given *Warm salt water gargles may help to soothe the throat *Throat Lozenges? *Warm fluids like tea with honey may help to soothe the throat? *Sleep elevated *Humidifier/Vaporizer *Flonase 2 sprays in each nostril daily but be aware that it may take 2-3 days before you notice improvement Follow up IMMEDIATELY for new or worsening symptoms or no Noticeable improvement over the next 48-72 hours. 911 for difficulty breathing or swallowing Clinical Impressions Clinical Impression: Viral upper respiratory infection Stand Alone Forms Stand Alone Forms: Work/School Release Instructions Patient Instructions: DI for Viral Upper Respiratory Infection -- Adult Print Language Print Language: Armenian Discharge ED Provider: La Watkins [facility] General Stated complaint: Sore throat ear pain congestion drainage Mode of Arrival: Ambulatory Source of Information: Patient Limitations: No Limitations Time Seen by Provider: 07/05/22 10:07 Description of Symptoms (Recalled from Triage Doc. by RN): pt comes in with c/o dry cough, bilateral ear ache, stuffy nose ongoing for a 2-3 days HEENT Symptoms (Recalled from RN notes): Yes Resp Symptoms (Recalled from RN notes): Yes Skin Symptoms (Recalled from RN notes): No MS Symptoms (Recalled from RN notes): No Functional Status (Recalled from RN notes): n/a History of Present Illness Provider Complaint: Patient states that for the last couple of days patient has been having nasal congestion, bilateral ear pain and dry cough States that today wasnt feeling any better worried may have flu or something so came in to get checked Related Data Home Medications Medication Instructions Recorded Confirmed testosterone cypionate 200 mg/mL 100 mg IM WEEKLY TRANSITION 07/16/20 05/25/22 intramuscular oil Previous Rx's Medication Instructions Recorded amoxicillin 875 mg tablet 875 mg PO BID #20 tabs 05/25/22 fluticasone propionate 50 1 spray intranasal DAILY #16 grams 05/25/22 mcg/actuation nasal spray,suspension (Flonase Allergy Relief) Allergies Allergy/AdvReac Type Severity Reaction Status Date / Time No Known Allergies Allergy Verified 07/05/22 09:58 Worker's Comp Is this a Worker's Comp case?: No [facility] Disclaimer: The information contained in this section may have been updated after the patient was seen, as this information can be updated by other users. Medical History (Updated 07/05/22 @ 10:14 by La Watkins APRN) Anxiety Depression Migraine Social History Smoking Status: Former smoker alcohol intake: current counseling provided: provider counseling substance use type: former substance user and marijuana current occupational status: employed Travel in the last 8 weeks: None household members: spouse and family housing: house marital status: ROS Obtained: Yes All systems reviewed & no additional complaints except as documented and Yes Systems reviewed as appropriate & no addit
[2022-07-05 10:08] LABS: UTC Influenza A Antigen Negative (Negative); UTC Influenza B Antigen Negative (Negative)
[2022-07-05 10:19] VITALS: BP 98/72; PULSE 76; RESP 17; TEMP 36.6; O2SAT 99
== END 2022-07-05 10:23 | disposition home or self-care (01) ==
PROVIDERS: Emergency Provider Nurse Practitioner; PCP Nurse Practitioner Family
DX: J06.9 Acute upper respiratory infection, unspecified (principal)
CPT/HCPCS: 87804; 99212; G0463

== ENCOUNTER 2022-07-08 11:32 | Emergency (ER) | payer MEDICAID, SELFPAY ==
[2022-07-08 12:05] VITALS: BP 147/86; PULSE 103; RESP 20; TEMP 36.4; O2SAT 98; BMI 31.8
--- NOTE | 2022-07-08 12:09 | EXP.UTC ---
Discharge Plan Disposition Patient Disposition: Home, Self-Care Condition: Good Prescriptions Prescriptions: New azithromycin [Zithromax] 250 mg tablet 250 mg PO UD DOSE PK Qty: 6 0RF Rx Instructions: Take two (2) tablets today, then one (1) tablet days #2 thru #5 benzonatate [benzonatate] 100 mg capsule 100 mg PO TIDP PRN (Reason: Cough) Qty: 30 0RF methylprednisolone 4 mg Tablets,Dose Pack 4 mg PO DIRECTED Qty: 21 0RF No Action testosterone cypionate 200 mg/mL oil 100 mg IM WEEKLY amoxicillin 875 mg tablet 875 mg PO BID Qty: 20 0RF fluticasone propionate [Flonase Allergy Relief] 50 mcg/actuation spray,suspension 1 spray intranasal DAILY Qty: 16 0RF Rx Instructions: administer into each nostril Referrals Follow up/Referrals: Vikki Yarbrough PA [Primary Care Provider] - See instructions Activity Restrictions/Add. Instructions Additional Instructions/Restrictions: Drink plenty of fluids. Take tylenol or ibuprofen for pain or fever. Take the medications as directed. Follow up with your regular doctor. GO TO THE ER FOR ANY WORSENING SYMPTOMS Clinical Impressions Clinical Impression: Sinusitis, Bronchitis Stand Alone Forms Stand Alone Forms: Work/School Release Instructions Patient Instructions: DI for Sinusitis, DI for Acute Bronchitis Discharge ED Provider[place] Pay[place] [facility] [place] General Stated complaint: congested Time Seen by Provider: 07/08/22 12:08 History of Present Illness Provider Complaint: She states that for the past 3 days he has had low grade fever, productive cough, sore throat, and malaise. Related Data Home Medications Medication Instructions Recorded Confirmed testosterone cypionate 200 mg/mL 100 mg IM WEEKLY TRANSITION 07/16/20 05/25/22 intramuscular oil Previous Rx's Medication Instructions Recorded amoxicillin 875 mg tablet 875 mg PO BID #20 tabs 05/25/22 fluticasone propionate 50 1 spray intranasal DAILY #16 grams 05/25/22 mcg/actuation nasal spray,suspension (Flonase Allergy Relief) azithromycin 250 mg tablet 250 mg PO UD DOSE PK #6 tabs 07/08/22 (Zithromax) benzonatate 100 mg capsule 100 mg PO TIDP PRN Cough #30 caps 07/08/22 methylprednisolone 4 mg tablets in 4 mg PO DIRECTED #21 tabs 07/08/22 a dose pack Allergies Allergy/AdvReac Type Severity Reaction Status Date / Time No Known Allergies Allergy Verified 07/05/22 09:58 [facility] Disclaimer: The information contained in this section may have been updated after the patient was seen, as this information can be updated by other users. Medical History Anxiety Depression Migraine Social History Smoking Status: Former smoker alcohol intake: current counseling provided: provider counseling substance use type: former substance user and marijuana current occupational status: employed Travel in the last 8 weeks: None household members: spouse and family housing: house marital status: ROS Obtained: Yes All systems reviewed & no additional complaints except as documented Constitutional Constitutional: Reports poor appetite Eyes Eyes: Reports system reviewed and no additional complaints, except as documented ENT Ears, Nose, Mouth, and Throat: Reports as per HPI Cardiovascular Cardiovascular: Reports system reviewed and no additional complaints, except as documented and Denies chest pain Respiratory Respiratory: Denies shortness of breath, Reports chest congestion, Reports cough, Denies stridor and Denies wheezing Gastrointestinal Gastrointestingal: Reports system reviewed and no additional complaints, except as documented; Denies abdominal pain, diarrhea or vomiting Musculoskeletal Musculoskeletal: Reports system reviewed and no additional complaints, except as documented and Denies arthralgias Int
[2022-07-08 12:47] VITALS: BP 147/86; PULSE 103; RESP 20; TEMP 36.4; O2SAT 98
== END 2022-07-08 12:50 | disposition home or self-care (01) ==
PROVIDERS: Emergency Provider Nurse Practitioner Family; PCP Student in an Organized Health Care Education/Training Program
DX: J32.9 Chronic sinusitis, unspecified (principal); J40 Bronchitis, not specified as acute or chronic
CPT/HCPCS: 99212; 99213; G0463

== ENCOUNTER 2022-07-23 08:51 | Emergency (ER) | payer MEDICAID, SELFPAY ==
--- NOTE | 2022-07-23 09:06 | XR_ITS ---
PROCEDURE INFORMATION: Exam: XR Right Hand Exam date and time: 07/23/2022 9:28 AM Age: 26 years old Clinical indication: Pain; Wrist; Right; Additional info: Knot- on thumb side of wrist TECHNIQUE: Imaging protocol: Radiologic exam of the right hand. Views: 3 or more views. COMPARISON: CR XR HAND RT MIN 3V 03/01/2021 8:45 AM FINDINGS: Bones/joints: No acute osseous pathology in the visualized right hand. Anatomic alignment. Soft tissues: No radiopaque foreign body. IMPRESSION: No acute osseous pathology in the visualized right hand.
--- NOTE | 2022-07-23 09:06 | XR_ITS ---
PROCEDURE INFORMATION: Exam: XR Right Wrist Exam date and time: 07/23/2022 9:31 AM Age: 26 years old Clinical indication: Pain; Wrist; Right; Additional info: Knot TECHNIQUE: Imaging protocol: Radiologic exam of the right wrist. Views: 3 or more views. COMPARISON: CR XR WRIST RT 2V 08/06/2021 8:17 AM FINDINGS: Bones/joints: No acute osseous pathology. Anatomic alignment. Soft tissues: Unremarkable soft tissues. IMPRESSION: No acute osseous pathology.
[2022-07-23 09:10] VITALS: BP 134/88; PULSE 101; RESP 20; TEMP 36.7; O2SAT 97; BMI 35.0
--- NOTE | 2022-07-23 09:30 | EXP.UTC ---
Discharge Plan Disposition Patient Disposition: Home, Self-Care Condition: Good Prescriptions Prescriptions: No Action testosterone cypionate 200 mg/mL oil 100 mg IM WEEKLY Referrals Follow up/Referrals: Vikki Yarbrough PA [Primary Care Provider] - See instructions Activity Restrictions/Add. Instructions Additional Instructions/Restrictions: Wear splint for a few days to see if that helps with pain Follow up with your Family Doctor if symptoms do not improve or immediately if they worsen Return if needed Straight to ER if any life threatening symptoms Clinical Impressions Clinical Impression: Acute wrist pain Qualifiers: Laterality: right Qualified Code(s): M25.531 - Pain in right wrist Instructions Patient Instructions: How To Perform RICE (Rest, Ice, Compress, Elevate), Ibuprofen Discharge ED Provider: La Watkins [facility] General Stated complaint: knot on wrist, no accident Mode of Arrival: Ambulatory Source of Information: Patient Limitations: No Limitations Time Seen by Provider: 07/23/22 09:32 Description of Symptoms (Recalled from Triage Doc. by RN): right hand has a knot on the wrist, and is congested. HEENT Symptoms (Recalled from RN notes): Yes Resp Symptoms (Recalled from RN notes): No Skin Symptoms (Recalled from RN notes): No MS Symptoms (Recalled from RN notes): Yes Functional Status (Recalled from RN notes): n/a History of Present Illness Provider Complaint: Patient states that been having pain in right wrist area and noticed a knot on the wrist and feels like thumb locks up at times Denies known injury States that it just popped up there States that also been having some sinus congestion but it is better than what it was a couple weeks ago Related Data Home Medications Medication Instructions Recorded Confirmed testosterone cypionate 200 mg/mL 100 mg IM WEEKLY TRANSITION 07/16/20 07/23/22 intramuscular oil Allergies Allergy/AdvReac Type Severity Reaction Status Date / Time No Known Allergies Allergy Verified 07/23/22 09:15 Worker's Comp Is this a Worker's Comp case?: No [facility] Disclaimer: The information contained in this section may have been updated after the patient was seen, as this information can be updated by other users. Medical History Anxiety Depression Migraine Social History Smoking Status: Former smoker alcohol intake: current counseling provided: provider counseling substance use type: former substance user and marijuana current occupational status: employed Travel in the last 8 weeks: None household members: spouse and family housing: house marital status: ROS Obtained: Yes All systems reviewed & no additional complaints except as documented and Yes Systems reviewed as appropriate & no additional complaints except as documented Constitutional Constitutional: Reports system reviewed and no additional complaints, except as documented and Reports as per HPI ENT Ears, Nose, Mouth, and Throat: Reports system reviewed and no additional complaints, except as documented, Reports as per HPI, Reports nasal congestion and Reports nasal discharge Cardiovascular Cardiovascular: Reports system reviewed and no additional complaints, except as documented and Reports as per HPI Respiratory Respiratory: Reports system reviewed and no additional complaints, except as documented and Reports as per HPI Gastrointestinal Gastrointestingal: Reports system reviewed and no additional complaints, except as documented and as per HPI Musculoskeletal Musculoskeletal: Reports system reviewed and no additional complaints, except as documented and Reports as per HPI Comments: Pain in right wrist and noticed a knot on her wrist Physical Exam General General appearance: alert and in no apparent distress Expanded ENT Exam Nose exam: Absent sin
[2022-07-23 10:12] VITALS: BP 134/88; PULSE 101; RESP 20; TEMP 36.7; O2SAT 97
== END 2022-07-23 10:11 | disposition home or self-care (01) ==
PROVIDERS: Emergency Provider Nurse Practitioner; PCP Student in an Organized Health Care Education/Training Program
DX: M25.531 Pain in right wrist (principal)
CPT/HCPCS: 73110; 73130; 99212; 99213; G0463

== ENCOUNTER → 2022-08-03 23:35 | Outpatient (CLI) | payer MEDICAID, SELFPAY | PROVIDERS: PCP Student in an Organized Health Care Education/Training Program; Visit Provider Student in an Organized Health Care Education/Training Program | DX: J02.9 Acute pharyngitis, unspecified (principal) | CPT/HCPCS: 87070 ==

== ENCOUNTER → 2022-09-06 12:54 | Outpatient (CLI) | payer MEDICAID, SELFPAY ==
--- NOTE | 2022-09-06 12:56 | US_ITS ---
FINAL REPORT CLINICAL HISTORY: Knot to right wrist COMPARISON: None FINDINGS: ULTRASOUND SOFT TISSUE LIMITED Sonographic images of the area of interest in the right wrist were obtained. There is focal soft tissue prominence at the area of interest, is unclear if this is part of the tendon or adjacent to the tendon. IMPRESSION: Focal soft tissue prominence at the area of interest. MRI could further evaluate Reviewed, Interpreted and Dictated by Nacho Gray III, MD Transcribed by Ashley Conde Authenticated and [facility]
== END ==
PROVIDERS: PCP Student in an Organized Health Care Education/Training Program; Visit Provider Student in an Organized Health Care Education/Training Program
DX: M25.531 Pain in right wrist (principal)
CPT/HCPCS: 76882

== ENCOUNTER → 2022-11-09 16:53 | Outpatient (CLI) | payer MEDICAID, SELFPAY ==
--- NOTE | 2022-11-09 16:58 | MR_ITS ---
PROCEDURE INFORMATION: Exam: MR Right Upper Extremity Joint Without Contrast; Wrist Exam date and time: 11/09/2022 5:02 PM Age: 27 years old Clinical indication: Pain; Wrist; Right; Additional info: RT wrist pain. Knot on lateral aspect of wrist [id number]. Put marker on knot. TECHNIQUE: Imaging protocol: Magnetic resonance imaging of the right upper extremity without contrast. Exam focused on the wrist. COMPARISON: CR XR WRIST RT MIN 3V 07/23/2022 9:31 AM FINDINGS: Limitations: Motion artifact - mild. Lack of intravenous contrast. Bones/joints: No acute fracture. No dislocation. Mild reactive edema within radial styloid. Scapholunate ligament: No definite tear. Lunotriquetral ligament: No definite tear. Triangular fibrocartilage complex: No definite tear. Flexor compartment tendons: Intact. Extensor compartment tendons: Enlarged, poorly defined, heterogeneous abductor pollicis longus and extensor pollicis brevis tendons at level of radiocarpal joint. Soft tissues: Mild edema/fibrosis within subcutaneous tissues about first dorsal compartment. IMPRESSION: Findings compatible with de Quervain syndrome.
== END ==
PROVIDERS: PCP Nurse Practitioner Family; Visit Provider Orthopaedic Surgery
DX: M25.531 Pain in right wrist (principal)
CPT/HCPCS: 73221

== ENCOUNTER → 2022-11-23 15:22 | Outpatient (CLI) | payer MEDICAID, SELFPAY ==
[2022-11-23 16:02] LABS: Basophils % 0.5 % (0.1-2.0); Eosinophils # 0.1 K/mm3 (0.0-0.4); Hematocrit 53.1 % (37.0-47.0); Hemoglobin 16.7 g/dL (12.2-16.2); Lymphocytes # 2.3 K/mm3 (0.7-4.5); Lymphocytes % 29.9 % (10-50); Mean Corpuscular HGB Conc 31.5 g/dL (31.8-35.4); Mean Corpuscular Hemoglobin 28.2 pg (27.0-31.2); Mean Corpuscular Volume 89.5 fl (81-99); Mean Platelet Volume 8.8 fl (7.4-10.4); Monocytes # 0.4 K/mm3 (0.1-1.0); Monocytes % 5.2 % (1.7-9.3); Neutrophils # 4.8 K/mm3 (1.8-7.8); Neutrophils % 63.5 % (37.0-80.0); Platelet Count 290 K/mm3 (142-424); Red Blood Count 5.93 M/mm3 (4.20-5.40); White Blood Count 7.6 K/mm3 (4.8-10.8)
[2022-11-23 16:43] LABS: Alanine Aminotransferase 20 U/L (12-78); Albumin Level 4.4 g/dl (3.5-5.0); Albumin/Globulin Ratio 1.6 (1.1-1.8); Alkaline Phosphatase 90 U/L (38-126); Anion Gap 15.4 mEq/L (5-15); Aspartate Amino Transferase 26 U/L (14-36); Bilirubin,Total 0.5 mg/dl (0.2-1.3); Blood Urea Nitrogen 5 mg/dl (7-17); Carbon Dioxide 27 mmol/L (22.0-30.0); Chloride 103 mmol/L (98-107); Estimated Glomerular Filt Rate 76 ml/min (>60); GFR (African American) 92 ML/MIN (>60); Globulin 2.7 g/dL (1.3-3.2); Glucose 79 mg/dl (74-100); Potassium 4.4 mmoL/L (3.5-5.1); Sodium 141 mmol/L (136-145); Total Protein,Serum 7.1 g/dl (6.3-8.2)
== END ==
PROVIDERS: PCP Student in an Organized Health Care Education/Training Program; Visit Provider Orthopaedic Surgery
DX: Z01.818 Encounter for other preprocedural examination (principal)
CPT/HCPCS: 36415; 80053; 85025

== ENCOUNTER 2022-11-29 08:17 | Day surgery (SDC) | payer MEDICAID, SELFPAY ==
[2022-11-29 08:51] VITALS: BMI 33.6
--- NOTE | 2022-11-29 08:52 | XR_ITS ---
FINAL REPORT CLINICAL HISTORY: preop, cough COMPARISON: 02/10/2022 FINDINGS: SINGLE-VIEW CHEST The heart size is normal. The mediastinum is normal. The lungs are clear. There is no pneumothorax. IMPRESSION: No acute cardiopulmonary process. Reviewed, Interpreted and Dictated by Nacho Gray III, MD Transcribed by Shannan French Authenticated and [facility]
--- NOTE | 2022-11-29 08:54 | P.PN_ITS ---
[facility] Disclaimer: The information contained in this section may have been updated after the patient was seen, as this information can be updated by other users. Medical History Migraine Osteophyte, right wrist Surgical History No history of previous surgery Family History Other No significant family history Social History Smoking Status: Former smoker alcohol intake: never counseling provided: provider counseling substance use type: former substance user and marijuana current occupational status: employed and unemployed Travel in the last 8 weeks: None household members: spouse and family housing: house marital status: [facility] Anesthesia Checklist Patient Identification Patient Identification: Arm Band and Verbal (Name & ) Structural Data Admitted From: Home Planned Operative Procedure/s: De quergriceldain's Consent for Planned Operative Procedure(s) Verified: Yes NPO Status Verified Time NPO: 00:00 Airway Assessment C-Spine Mobility Assessed: Yes TMJ Mobility Assessed: Yes Dentition: Good Dentition Neurological Assessment Level of Consciousness: Awake Hx Seizures: No Numbness or tingling in extremities: No Anesthesia Plan Anesthesia Risk discussed: Yes Anesthesia Plan: Verified ASA Class: I Anesthesia Type: MAC
--- NOTE | 2022-11-29 08:58 | ECG_ITS ---
APPROVED REPORT Exam: Resting ECG HR:73 bpm ECG Measurements Heart Rate 73 AXES NJ 137 P 38 QRSd 90 QRS 65 QT 307 T -13 QTc 333 Conclusion SINUS RHYTHM WITH SINUS ARRHYTHMIA POSSIBLE ANTERIOR MYOCARDIAL INFARCTION , PROBABLY OLD [30 ms Q WAVE IN V3/V4, OR R < 0.2 mV IN V4] BORDERLINE ECG UNCONFIRMED REPORT Electronically signed by : Dontrell Hernandez MD 11/30/2022 21:17:20
[2022-11-29 09:02] VITALS: BP 133/84; PULSE 90; RESP 18; TEMP 36.5; O2SAT 99
[2022-11-29 09:28] LABS: Urine Pregnancy, HCG Qual. Negative (Negative)
--- NOTE | 2022-11-29 09:45 | P.PCN_ITS ---
[facility] Procedure Note Date: 11/29/22 Time: 09:45 Procedure Note:: Cardiology consult requested due to abnormal EKG.
--- NOTE | 2022-11-29 10:00 | SUR.PREOP ---
Violetta Mcleod APRN Cardiology at bedside.
--- NOTE | 2022-11-29 10:17 | SUR.PREOP ---
Echo being performed at bedside.
--- NOTE | 2022-11-29 10:52 | SUR.PREOP ---
Per Marina Grant RN who spoke with cardiology on phone, ok to go with procedure.
--- NOTE | 2022-11-29 10:53 | EXP.CARD.CON ---
History of Present Illness History of Present Illness Consult date: 11/29/22 Requesting physician: Basil Spain Consult reason: pre-op evaluation Chief complaint: anxious History of present illness: This is a 27-year-old who presented to the hospital for elective removal of osteophyte from the right distal radius with deQuervain's release. The patient had an EKG obtained prior to the surgery today and cardiology was consulted for an abnormal EKG. The patient denies any chest pain or pressure. The patient denies any shortness of breath or edema. The patient denies any fever, chills, nausea, vomiting, diarrhea, PND or orthopnea. The patient does report feeling anxious and nervous this morning in anticipation of the surgery. The patient reports having none of the symptoms previously as well. The patient is a former smoker and does vape occasionally. [facility] Disclaimer: The information contained in this section may have been updated after the patient was seen, as this information can be updated by other users. Medical History (Updated 11/29/22 @ 12:44 by Violetta Mcleod APRN) Migraine Osteophyte, right wrist Pre-operative cardiovascular examination Surgical History No history of previous surgery Family History Other No significant family history Social History Smoking Status: Former smoker alcohol intake: never counseling provided: provider counseling substance use type: former substance user and marijuana current occupational status: employed and unemployed Travel in the last 8 weeks: None household members: spouse and family housing: house marital status: Review of Systems Review of Systems Review of systems:: pertinent systems reviewed and negative unless documented below Constitutional Constitutional: Reports system reviewed and no additional complaints, except as documented Eyes Eyes: Reports system reviewed and no additional complaints, except as documented ENT Ears, Nose, Mouth, and Throat: Reports system reviewed and no additional complaints, except as documented *Cardiovascular Cardiovascular: Reports system reviewed and no additional complaints, except as documented *Respiratory Respiratory: Reports system reviewed and no additional complaints, except as documented *Gastrointestinal Gastrointestinal: Reports system reviewed and no additional complaints, except as documented *Musculoskeletal Musculoskeletal: Reports system reviewed and no additional complaints, except as documented Integumentary/Breasts Skin/Breast: Reports system reviewed and no additional complaints, except as documented *Neurologic Neurologic: Reports system reviewed and no additional complaints, except as documented Psychiatric Psychiatric: Reports system reviewed and no additional complaints, except as documented Endocrine Endocrine: Reports system reviewed and no additional complaints, except as documented Hematologic/Lymphatic Hematologic/Lymphatic: Reports system reviewed and no additional complaints, except as documented Allergic/Immunologic Allergic/Immunologic: Reports system reviewed and no additional complaints, except as documented Exam Data for Last 24 hours Vital signs and Labs for Last 24 Hours: Temp Pulse Resp BP Pulse Ox 97.7 F 90 18 133/84 99 11/29/22 09:02 11/29/22 09:02 11/29/22 09:02 11/29/22 09:02 11/29/22 09:02 Laboratory Results - last 24 hr 11/29/22 08:54: Urine HCG, Qual Negative I & O for Last 24 hours: Intake & Output 11/26/22 11/27/22 11/28/22 11/29/22 23:59 23:59 23:59 23:59 Weight 190 lb Narrative: EKG is sinus rhythm with a rate of 73 bpm. No ischemic changes noted per Dr. Kaplan. Constitutional Constitutional: no acute distress and obese *Routine HEENT Exam Head: Present normocephalic a
[2022-11-29 11:41] VITALS: TEMP 43
--- NOTE | 2022-11-29 12:02 | P.OP_ITS ---
Date of procedure: 11/29/22 Pre-op Diagnosis:: Right wrist de Quervain's osteophyte distal radius Post-op Diagnosis:: Same with ganglion cyst first dorsal compartment Procedure performed:: 1. Right wrist excision ganglion cyst first dorsal compartment 2. right wrist de Quervain's tendon sheath release Surgeon:: James Chamberlain DO [employer] OPERATOR:: Other Anesthesia: MAC and local Estimated blood loss (mL): 0 Operative findings:: See dictation Operative note:: Patient is identified preoperatively. Right wrist marked with yes my initials. Transported operative suite. Placed upon the leg radiolucent bed with hand table. Right upper extremity is then prepped and draped in normal sterile fashion. Once prepped and draped final operative timeout performed to identify proper patient procedure and extremity. Everyone involved the case agreed. No counter indication beginning. Did receive preoperative antibiotics. Marking pen was made planned incision over the radial aspect of the wrist first dorsal compartment. Esmarch was used exsanguinate the extremity after local anesthesia was infiltrated to the incision site. Skin knife was used incise the skin careful dissection was taken down over the first dorsal compartment. There was a fairly large ganglion cyst present the first dorsal compartment sheath. This was removed and debrided. And then release of first dorsal compartment with de Quervain's tenosynovectomy was performed. The edge of the radius did have a small osteophyte present which was debrided. Thumb was then placed through range of motion release of the first dorsal compartment complete irr igation complete cyst removed. Copious irrigation wound performed. Deep layers closed with Vicryl. Subcuticular closed with 4-0 Monocryl. Steri-Strips placed sterile dressing placed patient waken from anesthesia taken recovery in stable condition. Condition: stable Disposition: PACU Complications:: None apparent
[2022-11-29 12:09] VITALS: BP 100/51; PULSE 88; RESP 16; TEMP 36.2; O2SAT 97
[2022-11-29 12:19] VITALS: BP 121/76; PULSE 86; RESP 17; O2SAT 96
[2022-11-29 12:29] VITALS: BP 120/73; PULSE 85; RESP 17; O2SAT 97
[2022-11-29 12:39] VITALS: BP 109/53; PULSE 83; RESP 18; O2SAT 98
== END 2022-11-29 12:40 | disposition home or self-care (01) ==
PROVIDERS: PCP Student in an Organized Health Care Education/Training Program; Visit Provider Orthopaedic Surgery
PROC: (CPT 25120; principal; 2022-11-29 09:45)
DX: M65.4 Radial styloid tenosynovitis [de Quervain] (principal); F41.9 Anxiety disorder, unspecified; M67.431 Ganglion, right wrist; M25.731 Osteophyte, right wrist
CPT/HCPCS: 25120; 25111; 25118; 71045; 81025; 93005; 93306; 96374; J2405

== ENCOUNTER 2022-12-19 20:31 | Emergency (ER) | payer MEDICAID, SELFPAY ==
[2022-12-19 20:32] VITALS: BP 163/97; PULSE 112; RESP 18; TEMP 36.8; O2SAT 96; BMI 20.9
[2022-12-19 21:01] VITALS: BP 129/69; PULSE 116; RESP 18; TEMP 36.8; O2SAT 98
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
== END 2022-12-19 21:20 | disposition home or self-care (01) ==
PROVIDERS: Emergency Provider Emergency Medicine; PCP Student in an Organized Health Care Education/Training Program
DX: S41.152A Open bite of left upper arm, initial encounter (principal); Y04.1XXA Assault by human bite, initial encounter
CPT/HCPCS: 99282

== ENCOUNTER → 2023-01-23 08:43 | Outpatient (CLI) | payer MEDICAID, SELFPAY ==
[2023-01-23 09:19] LABS: Basophils % 0.5 % (0.1-2.0); Eosinophils # 0.1 K/mm3 (0.0-0.4); Eosinophils % 0.9 % (0.1-12.0); Hematocrit 52.5 % (37.0-47.0); Hemoglobin 17.1 g/dL (12.2-16.2); Lymphocytes # 1.5 K/mm3 (0.7-4.5); Lymphocytes % 24.1 % (10-50); Mean Corpuscular HGB Conc 32.6 g/dL (31.8-35.4); Mean Corpuscular Hemoglobin 29.2 pg (27.0-31.2); Mean Corpuscular Volume 89.6 fl (81-99); Mean Platelet Volume 8.8 fl (7.4-10.4); Monocytes # 0.4 K/mm3 (0.1-1.0); Monocytes % 5.9 % (1.7-9.3); Neutrophils # 4.3 K/mm3 (1.8-7.8); Neutrophils % 68.7 % (37.0-80.0); Platelet Count 259 K/mm3 (142-424); Red Blood Count 5.86 M/mm3 (4.20-5.40); Red Cell Distribution Width 13.1 % (11.5-17.5); White Blood Count 6.3 K/mm3 (4.8-10.8)
[2023-01-23 09:55] LABS: Alanine Aminotransferase 17 U/L (12-78); Albumin Level 4.6 g/dl (3.5-5.0); Albumin/Globulin Ratio 1.5 (1.1-1.8); Alkaline Phosphatase 86 U/L (38-126); Anion Gap 14.2 mEq/L (5-15); Aspartate Amino Transferase 22 U/L (14-36); Bilirubin,Total 0.5 mg/dl (0.2-1.3); Blood Urea Nitrogen 5 mg/dl (7-17); Calcium 9.5 mg/dl (8.4-10.2); Carbon Dioxide 29 mmol/L (22.0-30.0); Chloride 102 mmol/L (98-107); Chol/HDL Ratio 4.5 (1-3.5); Cholesterol 183 mg/dl (140-200); Estimated Glomerular Filt Rate 67 ml/min (>60); GFR (African American) 81 ML/MIN (>60); Glucose 78 mg/dl (74-100); HDL Cholesterol 41 mg/dl (40-60); Potassium 4.2 mmoL/L (3.5-5.1); Sodium 141 mmol/L (136-145); Total Protein,Serum 7.6 g/dl (6.3-8.2); Triglycerides 135 mg/dl (30-150); VLDL Cholesterol 27 mg/dL (0-40)
[2023-01-23 10:06] LABS: Direct LDL Cholesterol 120.03 mg/dL (100-129)
[2023-02-03 18:52] LABS: Testosterone, Total, LC/MS 1760 ng/dL (.)
== END ==
PROVIDERS: PCP Student in an Organized Health Care Education/Training Program; Visit Provider Family Medicine
DX: F64.0 Transsexualism (principal)
CPT/HCPCS: 36415; 80053; 80061; 84403; 85025

== ENCOUNTER → 2023-04-26 08:52 | Outpatient (CLI) | payer MEDICAID, SELFPAY | PROVIDERS: PCP Student in an Organized Health Care Education/Training Program; Visit Provider Student in an Organized Health Care Education/Training Program | DX: R05.9 Cough, unspecified (principal) | CPT/HCPCS: 87635 ==

== ENCOUNTER 2023-05-29 10:10 | Outpatient (CLI) | payer MEDICAID, SELFPAY ==
--- NOTE | 2023-05-29 10:15 | XR_ITS ---
FINAL REPORT CLINICAL HISTORY: right foot pain, swelling FINDINGS: Right foot Three views were obtained. There is no acute fracture or dislocation. The joint spaces appear normal. No soft tissue abnormality is identified. There is pes planus deformity. IMPRESSION: No acute process. Reviewed, Interpreted and Dictated by Nacho Gray III, MD Transcribed by Shannan French Authenticated and [facility]
--- NOTE | 2023-05-29 10:15 | XR_ITS ---
FINAL REPORT CLINICAL HISTORY: right ankle swelling FINDINGS: Right ankle Three views were obtained. There is no acute fracture or dislocation. The joint spaces appear normal. No soft tissue abnormality is identified. IMPRESSION: No acute process. Reviewed, Interpreted and Dictated by Nacho Gray III, MD Transcribed by Shannan French Authenticated and [facility]
== END 2023-05-29 23:59 ==
LOC: RAD 10:12
PROVIDERS: PCP Student in an Organized Health Care Education/Training Program; Visit Provider Student in an Organized Health Care Education/Training Program
DX: M79.671 Pain in right foot (principal); M25.471 Effusion, right ankle
CPT/HCPCS: 73610; 73630

== ENCOUNTER 2023-09-11 16:28 | Outpatient (CLI) | payer MEDICAID, SELFPAY ==
[2023-09-11 18:22] LABS: Basophils # 0.1 K/mm3 (0-0.2); Basophils % 0.9 % (0.1-2.0); Eosinophils # 0.1 K/mm3 (0.0-0.4); Eosinophils % 1.2 % (0.1-12.0); Hematocrit 52.8 % (37.0-47.0); Hemoglobin 16.7 g/dL (12.2-16.2); Lymphocytes # 1.9 K/mm3 (0.7-4.5); Lymphocytes % 23.8 % (10-50); Mean Corpuscular HGB Conc 31.7 g/dL (31.8-35.4); Mean Corpuscular Hemoglobin 29.3 pg (27.0-31.2); Mean Corpuscular Volume 92.4 fl (81-99); Mean Platelet Volume 9.3 fl (7.4-10.4); Monocytes # 0.4 K/mm3 (0.1-1.0); Monocytes % 5.1 % (1.7-9.3); Neutrophils # 5.4 K/mm3 (1.8-7.8); Platelet Count 293 K/mm3 (142-424); Red Blood Count 5.71 M/mm3 (4.20-5.40); Red Cell Distribution Width 12.4 % (11.5-17.5); White Blood Count 7.9 K/mm3 (4.8-10.8)
[2023-09-11 19:39] LABS: Alanine Aminotransferase 22 U/L (12-78); Albumin Level 4.5 g/dl (3.5-5.0); Albumin/Globulin Ratio 1.7 (1.1-1.8); Alkaline Phosphatase 95 U/L (38-126); Anion Gap 13.5 mEq/L (5-15); Aspartate Amino Transferase 27 U/L (14-36); Bilirubin,Total 0.6 mg/dl (0.2-1.3); Blood Urea Nitrogen 11 mg/dl (7-17); Calcium 9.9 mg/dl (8.4-10.2); Carbon Dioxide 24 mmol/L (22.0-30.0); Chloride 107 mmol/L (98-107); Chol/HDL Ratio 5.5 (1-3.5); Cholesterol 216 mg/dl (140-200); Estimated Glomerular Filt Rate 67 ml/min (>60); GFR (African American) 81 ML/MIN (>60); Globulin 2.7 g/dL (1.3-3.2); Glucose 85 mg/dl (74-100); HDL Cholesterol 39 mg/dl (40-60); Potassium 4.5 mmoL/L (3.5-5.1); Sodium 140 mmol/L (136-145); Total Protein,Serum 7.2 g/dl (6.3-8.2); Triglycerides 123 mg/dl (30-150); VLDL Cholesterol 25 mg/dL (0-40)
[2023-09-11 19:47] LABS: Hemoglobin A1C 5.6 % (4.0-6.0)
[2023-09-11 19:49] LABS: Direct LDL Cholesterol 129.21 mg/dL (100-129)
[2023-09-11 20:11] LABS: Thyroid Stimulating Hormone 1.68 uIU/mL (0.465-4.68)
== END 2023-09-11 23:59 | disposition home or self-care (01) ==
LOC: LAB.DROPOF 09-12 16:29
PROVIDERS: PCP Student in an Organized Health Care Education/Training Program; Visit Provider Student in an Organized Health Care Education/Training Program
DX: R51.9 Headache, unspecified (principal); G89.29 Other chronic pain; E66.9 Obesity, unspecified; Z79.899 Other long term (current) drug therapy; Z68.38 Body mass index [BMI] 38.0-38.9, adult
CPT/HCPCS: 80053; 80061; 82306; 83036; 84443; 85025

== ENCOUNTER 2023-10-11 09:40 | Outpatient (CLI) | payer MEDICAID, SELFPAY ==
[2023-10-10 17:55] LABS: Adenovirus,PCR Not Detected (NotDetected); Bordetella Pertussis Not Detected (NotDetected); Chlamydophila Pneumoniae, PCR Not Detected (NotDetected); Coronavirus 19, PCR Not Detected (NotDetected); Coronavirus 229E Not Detected (NotDetected); Coronavirus NL63 Not Detected (NotDetected); Coronavirus OC43 Not Detected (NotDetected); Coronovirus HKU1,PCR Not Detected (NotDetected); Human Metapneumovirus Not Detected (NotDetected); Influenza A, PCR Not Detected (NotDetected); Influenza AH1, 2009 Not Detected (NotDetected); Influenza AH1, PCR Not Detected (NotDetected); Influenza AH3,PCR Not Detected (NotDetected); Influenza B, PCR Not Detected (NotDetected); Mycoplasma Pneumoniae, PCR Not Detected (NotDetected); Parainfluenza 1, PCR Not Detected (NotDetected); Parainfluenza 2, PCR Not Detected (NotDetected); Parainfluenza 3, PCR Not Detected (NotDetected); Parainfluenza 4, PCR Not Detected (NotDetected); Respiratory Syncytial Virus Not Detected (NotDetected)
[2023-10-10 20:26] LABS: Rhinovirus/Enterovirus Detected (NotDetected)
== END 2023-10-11 23:59 | disposition home or self-care (01) ==
LOC: LAB.DROPOF 09:40
PROVIDERS: PCP Nurse Practitioner Family; Visit Provider Nurse Practitioner Family
DX: J02.9 Acute pharyngitis, unspecified (principal); B34.1 Enterovirus infection, unspecified; J98.8 Other specified respiratory disorders; B97.89 Other viral agents as the cause of diseases classified elsewhere
CPT/HCPCS: 87070; 87581; 87632; 87635; 87798

== ENCOUNTER 2023-12-31 10:36 | Outpatient (CLI) | payer MEDICAID, SELFPAY ==
[2023-12-31 11:16] LABS: Basophils # 0.1 K/mm3 (0-0.2); Basophils % 0.7 % (0.1-2.0); Eosinophils # 0.1 K/mm3 (0.0-0.4); Eosinophils % 0.9 % (0.1-12.0); Hematocrit 50.2 % (37.0-47.0); Hemoglobin 16.2 g/dL (12.2-16.2); Lymphocytes # 1.8 K/mm3 (0.7-4.5); Lymphocytes % 23.2 % (10-50); Mean Corpuscular HGB Conc 32.3 g/dL (31.8-35.4); Mean Corpuscular Hemoglobin 29.6 pg (27.0-31.2); Mean Corpuscular Volume 91.7 fl (81-99); Monocytes # 0.4 K/mm3 (0.1-1.0); Monocytes % 4.8 % (1.7-9.3); Neutrophils # 5.4 K/mm3 (1.8-7.8); Neutrophils % 70.3 % (37.0-80.0); Platelet Count 302 K/mm3 (142-424); Red Blood Count 5.47 M/mm3 (4.20-5.40); Red Cell Distribution Width 13.3 % (11.5-17.5); White Blood Count 7.7 K/mm3 (4.8-10.8)
[2023-12-31 12:06] LABS: Alanine Aminotransferase 21 U/L (12-78); Albumin Level 4.2 g/dl (3.5-5.0); Albumin/Globulin Ratio 1.4 (1.1-1.8); Alkaline Phosphatase 81 U/L (38-126); Anion Gap 12.3 mEq/L (5-15); Aspartate Amino Transferase 24 U/L (14-36); Bilirubin,Total 0.7 mg/dl (0.2-1.3); Blood Urea Nitrogen 13 mg/dl (7-17); Calcium 9.4 mg/dl (8.4-10.2); Carbon Dioxide 25 mmol/L (22.0-30.0); Chloride 106 mmol/L (98-107); Chol/HDL Ratio 4.1 (1-3.5); Cholesterol 191 mg/dl (140-200); Estimated Glomerular Filt Rate 67 ml/min (>60); GFR (African American) 80 ML/MIN (>60); Glucose 108 mg/dl (74-100); HDL Cholesterol 47 mg/dl (40-60); Potassium 4.3 mmoL/L (3.5-5.1); Sodium 139 mmol/L (136-145); Total Protein,Serum 7.2 g/dl (6.3-8.2); Triglycerides 184 mg/dl (30-150); VLDL Cholesterol 37 mg/dL (0-40)
[2023-12-31 13:02] LABS: Direct LDL Cholesterol 111.87 mg/dL (100-129)
[2024-01-01 08:54] LABS: Estradiol 5.8 pg/mL (.); Testosterone,Total 120 ng/dL (13-71)
== END 2023-12-31 23:59 | disposition home or self-care (01) ==
LOC: LAB 10:38
PROVIDERS: PCP Student in an Organized Health Care Education/Training Program; Visit Provider Family Medicine
DX: F64.0 Transsexualism (principal)
CPT/HCPCS: 36415; 80053; 80061; 82670; 84403; 85025

== ENCOUNTER 2024-02-28 11:31 | Outpatient (CLI) | payer MEDICAID, SELFPAY ==
[2024-02-28 17:53] LABS: Coronavirus 19, PCR Not Detected (NotDetected); Influenza A, PCR Not Detected (NotDetected); Influenza B, PCR Not Detected (NotDetected)
== END 2024-02-28 23:59 | disposition home or self-care (01) ==
LOC: LAB.DROPOF 02-29 11:31
PROVIDERS: PCP Student in an Organized Health Care Education/Training Program; Visit Provider Student in an Organized Health Care Education/Training Program
DX: R05.9 Cough, unspecified (principal); R09.81 Nasal congestion; J02.9 Acute pharyngitis, unspecified
CPT/HCPCS: 87070; 87636